=== PATIENT | male | born 1950 | race African-American/Black ===

== ENCOUNTER 2020-02-23 16:32 | Emergency (ER) | payer MEDICARE, OTHER, SELFPAY ==
[2020-02-23 16:33] VITALS: BP 157/101; PULSE 110; RESP 22; TEMP 37; O2SAT 98; BMI 31.1
--- NOTE | 2020-02-23 16:48 | ED.VISSUMM ---
- ER Visit Summary Date of Service: 02/23/20 Chief Complaint: Fatigue and weakness History of Present Illness: The patient is a 70 M who presents with fatigue and weakness that is been getting worse over the past week. Patient states he feels drained. Patient states this is generalized. Patient admits to subjective fevers and chills. Patient states this has been constant for the past week. Patient states nothing makes it worse and nothing makes it better. Patient does admit to some intermittent abdominal pain and diarrhea. Patient denies any urinary complaints. Patient denies any cough. Patient states he tried to get an appointment to see his primary care doctor for a possible Covid test but was referred to the emergency department. Physical Examination: Vital signs are stable. Patient is afebrile. Patient is in no acute distress. Oral mucosa is pink and moist. Oropharynx is clear. Neck is supple. Trachea is midline. There is no JVD or lymphadenopathy noted. Heart was regular rate and rhythm. Lungs are clear and equal bilaterally. Abdomen is soft. Bowel sounds are normal. There is no tenderness. There is no rebound or guarding noted. Skin is warm dry. Cranial nerves II through XII are intact. There are no focal motor or sensory deficits noted. Extremities are intact. There is no calf tenderness or edema. Test Results: Portable 1 view chest x-ray was obtained. On my interpretation, lung wheat showed questionable bibasilar infiltrates. There is normal cardiac silhouette. Bony thorax is normal. Radiologist also interpreted the x-rays and reported minor interstitial thickening in the right upper and left lower lobes with slightly increased density suspicious for mild changes of atypical viral pneumonia. CBC and basic metabolic profile were obtained and were essentially within normal limits. Creatinine was slightly elevated at 1.43. This was unchanged from 2015. Urinalysis was normal. Rapid antigen COVID-19 test was ordered and was negative. Patient was advised that this could be a false negative and a send out PCR COVID-19 test was ordered. Emergency Department Course and Treatment: Patient was given IV fluids. Patient was feeling better on reevaluation. Patient was instructed to follow-up with his primary care physician in 3 to 5 days. Patient was instructed to quarantine himself until he follows up with his primary care physician for his PCR COVID-19 results. Patient was instructed to take Tylenol or ibuprofen as needed for any aches or fevers. Patient understood and was agreeable with the plan. All questions were answered. Disposition: Discharge home Impression: 1. Viral syndrome This note was generated with [employer] dictation software. It may contain incorrect words, spelling, and punctuation that were not noted in review of the chart prior to signing ED Disposition - Plan for ED Patient: Disposition: Home or Assisted Living Diagnosis: Viral illness Instructions: ED Viral Syndrome (Adult), Pending Outpatient COVID Test, Preventing the Spread of Infection Understanding Isolation Procedures Referrals: Bryant Short Chi, MD [Primary Care Provider] - 3-5 Days
--- NOTE | 2020-02-23 16:51 | RAD_ITS ---
STUDY: X-RAY CHEST REASON FOR EXAM: Male, 70 years old. pt began with overall aches and fatigue 1 week ago. TECHNIQUE: AP portable COMPARISON: None. FINDINGS: There is minor interstitial thickening in the right upper and left lower lobes with slightly increased density suspicious for mild changes of atypical viral pneumonia.. There is no demonstrated pleural abnormality. Normal size heart. Normal mediastinum and edu. Normal visualized pulmonary arteries. Normal visualized aortic arch and descending thoracic aorta. Dorsal spine demonstrates degenerative change.. Normal visualized ribs, clavicles, and shoulders. There is no demonstrated abnormality of the visualized soft tissue structures of the upper abdomen. RAD/Chest 1 View (Portable) IMPRESSION: Findings suspicious for early changes of Covid 19 pneumonia however this may be better assessed with CAT scan if clinically warranted Electronically Signed: Harvey Burgess MD at 17:09 EST , Service support ,
[2020-02-23 17:45] LABS: Bacteria 0 SEEN /hpf (None Seen); Mucous, Urine 0 SEEN /hpf (<or=2+); Red Blood Cells-Urine 0 SEEN /hpf (0-5); Squamous Epithelial Cells - UA 0 SEEN /hpf (0-5); White Blood Cells 0 SEEN /hpf (0-5)
[2020-02-23 17:47] LABS: Absolute Lymphocyte Count 0.97 X10^3/uL (0.83-4.51); Absolute Neutrophil Count 8.1 X10^3/uL (2.0-7.7); Basophil# 0.01 X10^3/uL; Basophil% 0.1 % (0-1); Eosinophil# 0.01 X10^3/uL; Eosinophils% 0.1 % (0-5); Hematocrit 45.2 % (40-54); Hemoglobin 15.2 g/dL (13.0-16.5); Lymphocyte # 0.97 X10^3/ul (4.0); Lymphocyte % 10.3 % (19-41); Mean Corp Hgb Conc 33.6 g/dL (32-36); Mean Corpuscular Hgb 30.5 pg (27.0-32.0); Mean Corpuscular Volume 90.8 fL (80-94); Mean Platelet Vol. 10.3 fl (6.2-12.0); Monocyte# 0.35 X10^3/uL; Monocyte% 3.7 % (0-10); NRBC Flagged by Analyzer 0 % (0-5); Neutrophil # 8.07 X10^3/uL (2.7-7.7); Neutrophil % 85.3 % (47-70); Platelet Count 240 K/mm3 (150-450); RBC Distribution Width CV 12.1 % (11.6-14.6); RBC Distribution Width SD 40.2 fl (35.1-43.9); Red Blood Count 4.98 M/mm3 (4.6-6.2); White Blood Count 9.5 K/mm3 (4.4-11.0)
[2020-02-23] MEDS: 0.9% Normal Saline 1,000 ML 1000 ML IV (17:47)
[2020-02-23] MEDS: Acetaminophen 500 MG Tablet 1000 MG PO (17:47)
[2020-02-23 17:48] LABS: Color, Urine Yellow (Yellow); Glucose, Dipstick 100 mg/dl (Normal); Ketone-Dipstick 5 mg/dl (Negative); Leukocyte Esterase-Dipstick Negative /ul (Negative); Nitrite-Dipstick Negative (Negative); Occult Blood-Urine 10 /ul (Negative); Protein-Dipstick 100 mg/dl (Negative); Urine Bilirubin Dipstick Negative (Negative); Urine Clarity Clear (Clear); Urine Urobilinogen 4 mg/dl (Normal)
[2020-02-23 18:03] LABS: ALB/GLOB Ratio 0.5 RATIO (0.9-2.4); AST(SGOT) 27 U/L (15-37); Alanine Aminotransfer ALT/SGPT 31 U/L (16-61); Alkaline Phosphatase 125 U/L (45-117); Anion Gap 7 (5-15); BUN 14 mg/dL (7-18); BUN/Creat Ratio 9.8 RATIO (10-20); Calcium,Total 8.7 mg/dL (8.5-10.1); Chloride 102 mmol/L (98-107); Creatinine, Serum 1.43 mg/dL (0.70-1.30); EST Glomerular Filtration Rate 52 mL/min (>60); Est Glom Filt Rate - Afr Amer 63 mL/min (>60); Estimated Creatinine Clearance 54.27 ml/min; Globulin 5.5 g/dL (2.2-4.2); Glucose 142 mg/dL (74-106); Potassium 3.4 mmol/L (3.5-5.1); Protein, Total 8.5 g/dL (6.4-8.2); Sodium Level 137 mmol/L (136-145)
[2020-02-23 18:58] VITALS: BP 130/70; PULSE 67; RESP 18; O2SAT 99
== END 2020-02-23 18:59 | disposition home or self-care (01) ==
PROVIDERS: Emergency Provider Emergency Medicine; PCP Family Medicine Geriatric Medicine
DX: B34.9 Viral infection, unspecified (principal)
CPT/HCPCS: 71045; 80053; 81001; 85025; 87426; 87635; 99285; J7030; A4216; U0003

== ENCOUNTER → 2020-02-28 14:08 | Outpatient (CLI) | payer MEDICARE, OTHER, SELFPAY ==
[2020-02-23 16:33] VITALS: BMI 31.1
[2020-02-28 17:17] LABS: Absolute Lymphocyte Count 1.53 X10^3/uL (0.83-4.51); Absolute Neutrophil Count 5.4 X10^3/uL (2.0-7.7); Basophil# 0.04 X10^3/uL; Basophil% 0.5 % (0-1); Eosinophil# 0.15 X10^3/uL; Eosinophils% 1.9 % (0-5); Hematocrit 39.4 % (40-54); Hemoglobin 13.7 g/dL (13.0-16.5); Lymphocyte # 1.53 X10^3/ul (4.0); Lymphocyte % 19.9 % (19-41); Mean Corp Hgb Conc 34.8 g/dL (32-36); Mean Corpuscular Hgb 32.5 pg (27.0-32.0); Mean Corpuscular Volume 93.4 fL (80-94); Mean Platelet Vol. 10.4 fl (6.2-12.0); Monocyte# 0.52 X10^3/uL; Monocyte% 6.8 % (0-10); NRBC Flagged by Analyzer 0 % (0-5); Neutrophil # 5.42 X10^3/uL (2.7-7.7); Neutrophil % 70.4 % (47-70); Platelet Count 319 K/mm3 (150-450); RBC Distribution Width CV 12.6 % (11.6-14.6); RBC Distribution Width SD 41.7 fl (35.1-43.9); Red Blood Count 4.22 M/mm3 (4.6-6.2); White Blood Count 7.7 K/mm3 (4.4-11.0)
[2020-02-28 17:52] LABS: ALB/GLOB Ratio 0.5 RATIO (0.9-2.4); AST(SGOT) 37 U/L (15-37); Alanine Aminotransfer ALT/SGPT 45 U/L (16-61); Albumin, Serum 2.7 g/dL (3.2-5.0); Alkaline Phosphatase 112 U/L (45-117); Anion Gap 8 (5-15); BUN 15 mg/dL (7-18); BUN/Creat Ratio 10.6 RATIO (10-20); Calcium,Total 8.8 mg/dL (8.5-10.1); Chloride 105 mmol/L (98-107); Creatinine, Serum 1.41 mg/dL (0.70-1.30); EST Glomerular Filtration Rate 53 mL/min (>60); Est Glom Filt Rate - Afr Amer 64 mL/min (>60); Globulin 5.4 g/dL (2.2-4.2); Glucose 114 mg/dL (74-106); PSA,Total - Annual Screen 0.66 ng/mL (0.00-4.00); Potassium 3.3 mmol/L (3.5-5.1); Protein, Total 8.1 g/dL (6.4-8.2); Sodium Level 138 mmol/L (136-145); Thyroid Stim Hormone (TSH) 1.59 uIU/mL (0.358-3.74)
[2020-02-29 10:08] LABS: Hepatitis C Antibody Non-Reactive (Nonreactive)
== END ==
PROVIDERS: PCP Family Medicine Geriatric Medicine; Visit Provider Family Medicine Geriatric Medicine
DX: E11.9 Type 2 diabetes mellitus without complications (principal); E23.6 Other disorders of pituitary gland; I10 Essential (primary) hypertension; Z12.12 Encounter for screening for malignant neoplasm of rectum; Z13.89 Encounter for screening for other disorder; Z12.5 Encounter for screening for malignant neoplasm of prostate
CPT/HCPCS: 80053; 84153; 84403; 84443; 85025; 86803; G0103

== ENCOUNTER → 2020-03-07 08:51 | Outpatient (CLI) | payer MEDICARE, OTHER, SELFPAY ==
[2020-02-23 16:33] VITALS: BMI 31.1
--- NOTE | 2020-03-07 08:53 | AAVD_ITS ---
Reason For Study: AAA without rupture Aorta Measurements Aorta Doppler Measurements Proximal aorta measures1.36 x 1.34cm. in cross- Peak systolic flow velocities within the proximal sectional axis. aorta measure 100.8 cm/sec. Proximal aorta measures1.42cm. in longitudinal Peak systolic flow velocities within the mid aorta axis. measure 86.2 cm/sec. Mid aorta measures1.21 x 1.18cm. in cross- Peak systolic flow velocities within the distal sectional axis. aorta measure 88.0 cm/sec. Mid aorta measures1.21cm. in longitudinal axis. Distal aorta measures1.39 x 1.49cm. in cross- sectional axis. Distal aorta measures1.47cm. in longitudinal axis. Left Iliac Artery Left iliac artery measures 1.02 x 1.06 cm. in the cross-sectional axis. Left iliac artery measures 1.01 cm. in the longitudinal axis. Peak systolic velocity in the left iliac artery measures 67.9 cm/sec. Right Iliac Artery Right iliac artery measures 1.01 x 1.05 cm. in the cross-sectional axis. Right iliac artery measures .95 cm. in the longitudinal axis. Peak systolic velocity in the right iliac artery measures 71.6 cm/sec. Procedure Aorta IVC Iliac vasculature or bypass grafts [id number]. The exam was diagnostic. Exam performed in department. Interpretation Summary The dimensions of the intra-abdominal aorta appear normal, without evidence of aneurysmal dilatation. The iliac arteries also appear normal in size bilaterally. The intra-abdominal aorta and iliac arteries appear patent, demonstrating normal, pulsatile arterial flow and normal peak systolic velocities. Ordering Physician: Bryant Short Performed By: John Martino RVT
== END ==
PROVIDERS: PCP Family Medicine Geriatric Medicine; Referring Provider Family Medicine Geriatric Medicine; Visit Provider Family Medicine Geriatric Medicine
DX: I71.4 Abdominal aortic aneurysm, without rupture (principal)
CPT/HCPCS: 93978

== ENCOUNTER → 2020-03-08 08:52 | Outpatient (CLI) | payer MEDICARE, OTHER, SELFPAY ==
[2020-02-23 16:33] VITALS: BMI 31.1
[2020-03-08 12:32] LABS: Anion Gap 6 (5-15); BUN 12 mg/dL (7-18); BUN/Creat Ratio 10.5 RATIO (10-20); Calcium,Total 8.5 mg/dL (8.5-10.1); Chloride 108 mmol/L (98-107); Creatinine, Serum 1.14 mg/dL (0.70-1.30); EST Glomerular Filtration Rate 68 mL/min (>60); Est Glom Filt Rate - Afr Amer 82 mL/min (>60); Glucose 123 mg/dL (74-106); Potassium 3.8 mmol/L (3.5-5.1); Sodium Level 140 mmol/L (136-145)
== END ==
PROVIDERS: PCP Family Medicine Geriatric Medicine; Visit Provider Family Medicine Geriatric Medicine
DX: E87.6 Hypokalemia (principal)
CPT/HCPCS: 36415; 80048

== ENCOUNTER 2020-03-23 07:30 | Outpatient (RCR) | payer MEDICARE, OTHER, SELFPAY | END 2020-04-09 23:59 | LOC: DC 07:30 | PROVIDERS: PCP Family Medicine Geriatric Medicine; Visit Provider Family Medicine Geriatric Medicine | DX: Z71.3 Dietary counseling and surveillance (principal); E11.9 Type 2 diabetes mellitus without complications | CPT/HCPCS: 97802 ==

== ENCOUNTER 2020-03-23 10:30 | Outpatient (RCR) | payer MEDICARE, OTHER, SELFPAY | END 2020-04-09 23:59 | LOC: DC 10:30 | PROVIDERS: PCP Family Medicine Geriatric Medicine; Visit Provider Family Medicine Geriatric Medicine | DX: Z71.3 Dietary counseling and surveillance (principal); E11.9 Type 2 diabetes mellitus without complications | CPT/HCPCS: G0108 ==

== ENCOUNTER 2020-03-27 08:45 | Day surgery (SDC) | payer MEDICARE, OTHER, SELFPAY ==
[2020-03-27] VITALS (7 sets, daily range): BP systolic 109–145; BP diastolic 73–85; PULSE 71–80; RESP 16; TEMP 36–36.7; O2SAT 95–100; BMI 32.3
[2020-03-27] MEDS: Lactated Ringers 1,000 ML 100 ML IV (09:21)
--- NOTE | 2020-03-27 09:45 | COLBX_PTH ---
PATIENT: JEREMY QUINTERO LOC: [facility] U#:[id number] AGE/SX: 70/M ROOM: RE03/27/[address]: Dr. Scarlet Richards MD : 1950 BED: DIS: 03/27/2020 SPEC #: [id number] RECD: 03/27/20 11:22 STATUS: MAIRA ELY #: [id number] RUBIA: 03/27/20 09:[address]: Scarlet Richards DEPT: SURGICAL PATHOLOGY RECD BY: Jamia Staples ENTERED: 03/27/20 12:32 SP TYPE: COLON BX OTHR DR: Dr. Bryant Short MD Tissues: Cecum, NOS Procedures: Surgery Specimen Level IV HEADER OPERATION: Colonoscopy - open access (MAC) PRE-OP DIAGNOSIS: Screening TISSUE SUBMITTED: Cecal polyp biopsy MICROSCOPIC DIAGNOSIS Cecal polyp, biopsy: Fragments of tubular adenoma. SJ:nick 03/28/2020 MICROSCOPIC DESCRIPTION Slides are reviewed. GROSS DESCRIPTION Received in fixative is one container labeled with the patient's name and designated cecal polyp biopsy. The specimen consists of multiple irregular fragments of light garcia soft tissue that in aggregate measure 1 x 0.3 x 0.1 cm. The specimen is totally submitted in one cassette. / SJ:nick 03/27/20 TC:1 CPT: 18332
--- NOTE | 2020-03-27 09:49 | H&P.OPEN ---
History of Present Illness Date of Admission: 03/27/20 The patient is a 70 year old M presents for screening colonoscopy. Patient states he has bowel movements daily denies any blood, denies any chronic abdominal pain/nausea/vomiting/reflux. Patient has never had a previous colonoscopy. Patient denies any family history of colon cancer Past Medical/Surgical History - Planned Operation Planned Operative Procedure/s: cscope open access Date of Operative Procedure: 03/27/20 Permit Signed: No S.O.S: No Is This Patient Having a Total Joint: No - Previous Hospitalizations/Surgeries HX Hospitalizations: No HX of Surgeries: n/a Any Problems With Anesthesia: No You/Your Family Experience Fever (Hyperthermia) With Anes: No Cholinesterase deficiency: No - Cardiovascular Hx Chest Pain within Last 2 months: No Hx of Irregular Heartbeat and/or Afib: No Hx Heart Attack: No Hx Congestive Heart Failure: No Hx Rheumatic Fever: No Hx Hypertension: No Hx Internal Defibrillator: No Hx Pacemaker: No Hx Cardiac Catheterization: No Hx Cardiac Surgery/Stents/Etc.: No Hx Stress Test: No HX Edema: No Hx Pain in Legs when Walking/Leg Cramps: No - Respiratory Chronic Cough: No HX of Shortness of Breath: No Hoarseness: No Hx Chronic Obstructive Pulmonary Disease (COPD): No Hx Asthma: No Hx Emphysema: No Hx Sleep Apnea: No Hx Oxygen Use at Home: No Hx Respiratory Tract Infection/Cold (presently): No Do You Snore Loudly (louder than talking or can be heard): Yes Do You Often Feel Tired/ Fatigued/ Sleepy Dring Daytime?: No Has Anyone Observed You Stop Breathing During Sleep?: No Result (for STOP score): Negative Hx Smoking: No Smoking Status: Never smoker - Gastrointestinal Hx Gastroesophageal Reflux: No Hx Gastrointestinal Disorders: No Hx Gastrointestinal Bleed: No Hx Ulcer: No Hx Hiatal Hernia: No Difficulty Chewing/Swallowing: No Recent Onset of Swallowing Problems: No Special diet followed at home: No Hx Unplanned Weight Loss of 20#: No HX Unplanned Weight Gain of 20#: No - Neurological Hx Seizures: No HX Syncope/Blackout Spells/Unconsciousness: No Hx CVA/Stroke: No Hx Transient Ischemic Attacks (TIA): No Hx Multiple Sclerosis: No Hx Parkinson's Disease: No Hx Head/Neck Injury: No Hx Headaches: No Hx Back Injury/Pain: No Recent Onset of Speech Difficulty: No Restless Legs: No Does patient have nerve stimulator: No Patient instructed to have device shut off: No Rep notified?: No - Blood Disorder Hx Leukemia: No Bleeding Tendencies: No Hx Deep Vein Thrombosis: No Hx High Cholesterol: Yes - on med Blood Transmitted Disease: No Hx Hepatitis: No Hx Cirrhosis: No Hx Anemia: No Hx Blood Disorders: No - Genitourinary Hx Renal Disease: No - Musculoskeletal Hx Arthritis: No Hx Rheumatoid Arthritis: No Hx Gout: No Recent Onset of an Orthopedic Problem: No - Endocrine Hx Diabetes: Yes Insulin: No Thyroid Disease: No Hx Steroid Therapy: No - Psycho/Social Hx Substance Use: No Hx Alcohol Use: No Hx Anxiety: No Hx Depression: No Mental Illness: No Hx Dementia: No - Miscellaneous Hx Cancer: No Recent Exposure to Contagious Disease: No Active MRSA: No Hx of C-Diff: No Any Loose Teeth: No Allergies No Known Allergies Allergy (Verified 03/27/20 08:54) - Discharge Is Pt Admitted From a Long Term, or a Residential: No After D/C, Where Do you Plan to Go: Return Home - From the PAT History Number of Risk Factors: 1 - Physical Exam Vitals/I&O's: Vital Signs Temp Pulse Resp BP Pulse Ox 96.8 F L 80 16 145/76 H 96 03/27/20 09:04 03/27/20 09:04 03/27/20 09:04 03/27/20 09:04 03/27/20 09:04 Oxygen Delivery Method Room Air Weight: 225 lb 4.999 oz Body Mass Index (BMI) 32.3 General: Alert, Oriented x3, Cooperative, No apparent distress HEENT: Atraumatic Lungs: Normal air movement Cardiovascular: Regular rate Abdomen: Soft, Non Tender, Non-Distended Extremities: No clubbing, No cyanosis, No edema Microbiology Past 72 Hours 03/24/20 09:30 Interface Orders SARS-CoV-2 Antigen (Rapid) - Final Current Medications Lactated Ringer's () 1,000 mls @ 100 mls/hr IV .Q10H MAGDA Last Admin: 03/27/20 09:21 Dose: 100 mls/hr Documented by: Assessment/Plan 70 y/o male for screening for colon cancer Procedure Criteria Procedure Type: Elective COVID Risk Discussion: The surgeon/proceduralist and patient have discussed in detail the risk of exposure to and/or potential harm posed by the COVID-19 virus with having a surgery/procedure at this time versus the risk of delaying the surgery/procedure. It is not possible to know either the risk of delaying the surgery or procedure or chance of getting an infection with perfect accuracy, but a joint decision was made between the patient and the surgeon/proceduralist to proceed at this time with the scheduled surgery/procedure as indicated on the consent form. Surgery Risks - Colonoscopy I discussed with the patient the risks of the procedure: Yes Risks Include but are not Limited To: Risks include but are not limited to: Bleeding, perforation requiring further surgery, inability to complete colonoscopy requiring barium enema.
[2020-03-27 10:31] LABS: Bedside Glucose 180 mg/dL (70-110)
--- NOTE | 2020-03-27 10:31 | OP.COLON_ITS ---
Patient Name: Chon Otero Procedure Date: 03/27/2020 9:56 AM Date of : 1950 Age: 70 Procedure: Colonoscopy Indications: Screening for colorectal malignant neoplasm Providers: Scarlet Richards MD Referring MD: Bryant Short MD Medicines: Monitored Anesthesia Care Patient Profile: This is a 70 year old male. Last Colonoscopy: none. The patient's first colonoscopy is today. Complications: No immediate complications. Procedure: Pre-Anesthesia Assessment: - Prior to the procedure, a History and Physical was performed, and patient medications and allergies were reviewed. The patient's tolerance of previous anesthesia was also reviewed. The risks and benefits of the procedure and the sedation options and risks were discussed with the patient. All questions were answered, and informed consent was obtained. Prior Anticoagulants: The patient has taken no previous anticoagulant or antiplatelet agents. ASA Grade Assessment: Per anesthesia. After reviewing the risks and benefits, the patient was deemed in satisfactory condition to undergo the procedure. After I obtained informed consent, the scope was passed under direct vision. Throughout the procedure, the patient's blood pressure, pulse, and oxygen saturations were monitored continuously. The colonoscope was introduced through the anus and advanced to the cecum, identified by the appendiceal orifice, ileocecal valve and palpation. The colonoscopy was performed without difficulty. The patient tolerated the procedure well. The quality of the bowel preparation was good. Scope In: 10:06:40 AM Scope Withdrawal Time 0 hours 13 minutes 7 seconds Scope Out: 10:25:14 AM Total Procedure Duration Time 0 hours 18 minutes 34 seconds Findings: Hemorrhoids were found on perianal exam. A few small-mouthed diverticula were found in the descending colon, transverse colon and ascending colon. A less than 5 mm polyp was found in the cecum. The polyp was sessile. The polyp was removed with a cold biopsy forceps. Resection and retrieval were complete. Non-bleeding internal hemorrhoids were found. The hemorrhoids were Grade I (internal hemorrhoids that do not prolapse). Impression: - Hemorrhoids found on perianal exam. - Diverticulosis in the descending colon, in the transverse colon and in the ascending colon. - One less than 5 mm polyp in the cecum, removed with a cold biopsy forceps. Resected and retrieved. - Non-bleeding internal hemorrhoids. Recommendation: - Repeat colonoscopy in 5 years for surveillance based on pathology results. - Discharge patient to home. - High fiber diet. - Continue present medications. - Await pathology results. Procedure Code(s): --- Professional --- 29901, PT, Colonoscopy, flexible; with biopsy, single or multiple Diagnosis Code(s): --- Professional --- Z12.11, Encounter for screening for malignant neoplasm of colon K64.0, First degree hemorrhoids D12.0, Benign neoplasm of cecum K57.30, Diverticulosis of large intestine without perforation or abscess without bleeding CPT copyright 2017 [employer]. All rights reserved. The codes documented in this report are preliminary and upon funeral car driver review may be revised to meet current compliance requirements. MD Scarlet Gutiérrez MD 03/27/2020 10:31:01 AM This report has been signed electronically. Number of Addenda: 0 Note Initiated On: 03/27/2020 9:56 AM
--- NOTE | 2020-03-27 10:31 | OP.CCLET_ITS ---
03/27/2020 Bryant Short MD [address] [place] [address] Re : Colonoscopy procedure for Chon Otero Dear Dr. Short This procedure was performed on Friday, March 27, 2020. My impressions and recommendations are as follows: Impressions : - Hemorrhoids found on perianal exam. - Diverticulosis in the descending colon, in the transverse colon and in the ascending colon. - One less than 5 mm polyp in the cecum, removed with a cold biopsy forceps. Resected and retrieved. - Non-bleeding internal hemorrhoids. Recommendations : - Repeat colonoscopy in 5 years for surveillance based on pathology results. - Discharge patient to home. - High fiber diet. - Continue present medications. - Await pathology results. My findings are described in the full procedure note, which is enclosed. If I can be of further assistance, please feel free to contact me at Doctor phone number(s): , Work: . Sincerely, MD Scarlet Gutiérrez MD 03/27/2020 10:31:01 AM This report has been signed electronically.
== END 2020-03-27 11:08 | disposition home or self-care (01) ==
LOC: EN 08:46 → AC 08:46
PROVIDERS: PCP Family Medicine Geriatric Medicine; Referring Provider Family Medicine Geriatric Medicine; Visit Provider Surgery
PROC: 0DJD8ZZ Inspection of Lower Intestinal Tract, Via Natural or Artificial Opening Endoscopic (ICD-10-PCS; CPT 45378; principal; 2020-03-27 09:40)
DX: Z12.11 Encounter for screening for malignant neoplasm of colon (principal); Z20.828 Contact with and (suspected) exposure to other viral communicable diseases; E78.00 Pure hypercholesterolemia, unspecified; Z79.899 Other long term (current) drug therapy; E11.9 Type 2 diabetes mellitus without complications; Z79.84 Long term (current) use of oral hypoglycemic drugs; D12.0 Benign neoplasm of cecum; K64.0 First degree hemorrhoids; K57.30 Diverticulosis of large intestine without perforation or abscess without bleeding
CPT/HCPCS: 45380; 82962; 87426; 88305; C9803; J7120; J2405

== ENCOUNTER 2020-05-02 13:00 | Outpatient (RCR) | payer MEDICARE, OTHER, SELFPAY ==
[2020-03-27 09:04] VITALS: BMI 32.3
== END 2020-05-02 23:59 | disposition home or self-care (01) ==
LOC: DC 13:00
PROVIDERS: PCP Family Medicine Geriatric Medicine; Visit Provider Family Medicine Geriatric Medicine
DX: Z71.3 Dietary counseling and surveillance (principal); E11.9 Type 2 diabetes mellitus without complications
CPT/HCPCS: 97803; G0108

== ENCOUNTER → 2020-06-05 11:56 | Outpatient (CLI) | payer MEDICARE, OTHER, SELFPAY ==
[2020-03-27 09:04] VITALS: BMI 32.3
[2020-06-05 12:32] LABS: Absolute Lymphocyte Count 1.83 X10^3/uL (0.83-4.51); Absolute Neutrophil Count 6.5 X10^3/uL (2.0-7.7); Basophil# 0.02 X10^3/uL; Basophil% 0.2 % (0-1); Eosinophil# 0.07 X10^3/uL; Eosinophils% 0.8 % (0-5); Hematocrit 44.4 % (40-54); Hemoglobin 14.8 g/dL (13.0-16.5); Lymphocyte # 1.83 X10^3/ul (4.0); Lymphocyte % 20.4 % (19-41); Mean Corp Hgb Conc 33.3 g/dL (32-36); Mean Corpuscular Hgb 30.5 pg (27.0-32.0); Mean Corpuscular Volume 91.5 fL (80-94); Mean Platelet Vol. 10.4 fl (6.2-12.0); Monocyte# 0.49 X10^3/uL; Monocyte% 5.5 % (0-10); NRBC Flagged by Analyzer 0 % (0-5); Neutrophil # 6.52 X10^3/uL (2.7-7.7); Neutrophil % 72.8 % (47-70); Platelet Count 207 K/mm3 (150-450); RBC Distribution Width CV 12.6 % (11.6-14.6); RBC Distribution Width SD 42.3 fl (35.1-43.9); Red Blood Count 4.85 M/mm3 (4.6-6.2)
[2020-06-05 12:56] LABS: Vitamin D,25 Hydroxy 17.8 ng/mL
[2020-06-05 13:06] LABS: ALB/GLOB Ratio 0.8 RATIO (0.9-2.4); AST(SGOT) 13 U/L (15-37); Alanine Aminotransfer ALT/SGPT 23 U/L (16-61); Albumin, Serum 3.5 g/dL (3.2-5.0); Alkaline Phosphatase 106 U/L (45-117); Anion Gap 5 (5-15); BUN 12 mg/dL (7-18); BUN/Creat Ratio 8.5 RATIO (10-20); Calcium,Total 8.9 mg/dL (8.5-10.1); Chloride 108 mmol/L (98-107); Creatinine, Serum 1.42 mg/dL (0.70-1.30); EST Glomerular Filtration Rate 53 mL/min (>60); Est Glom Filt Rate - Afr Amer 64 mL/min (>60); Globulin 4.4 g/dL (2.2-4.2); Glucose 193 mg/dL (74-106); Potassium 3.8 mmol/L (3.5-5.1); Protein, Total 7.9 g/dL (6.4-8.2); Sodium Level 139 mmol/L (136-145)
== END ==
PROVIDERS: PCP Family Medicine Geriatric Medicine; Visit Provider Family Medicine Geriatric Medicine
DX: E11.9 Type 2 diabetes mellitus without complications (principal); E23.6 Other disorders of pituitary gland; E55.9 Vitamin D deficiency, unspecified; I10 Essential (primary) hypertension
CPT/HCPCS: 36415; 80053; 82306; 84403; 84443; 85025

== ENCOUNTER → 2020-09-05 09:27 | Outpatient (CLI) | payer MEDICARE, OTHER, SELFPAY ==
[2020-03-27 09:04] VITALS: BMI 32.3
[2020-09-05 12:33] LABS: Absolute Lymphocyte Count 2.01 X10^3/uL (0.83-4.51); Absolute Neutrophil Count 5.4 X10^3/uL (2.0-7.7); Basophil# 0.02 X10^3/uL; Basophil% 0.2 % (0-1); Eosinophils% 1.2 % (0-5); Hematocrit 41.4 % (40-54); Hemoglobin 13.8 g/dL (13.0-16.5); Lymphocyte # 2.01 X10^3/ul (0.83-4.51); Lymphocyte % 24.8 % (19-41); Mean Corp Hgb Conc 33.3 g/dL (32-36); Mean Corpuscular Hgb 30.5 pg (27.0-32.0); Mean Corpuscular Volume 91.4 fL (80-94); Mean Platelet Vol. 10.6 fl (6.2-12.0); Monocyte# 0.49 X10^3/uL; Monocyte% 6.1 % (0-10); NRBC Flagged by Analyzer 0 % (0-5); Neutrophil # 5.44 X10^3/uL (2.7-7.7); Neutrophil % 67.3 % (47-70); Platelet Count 223 K/mm3 (150-450); RBC Distribution Width CV 12.5 % (11.6-14.6); RBC Distribution Width SD 41.8 fl (35.1-43.9); Red Blood Count 4.53 M/mm3 (4.6-6.2); White Blood Count 8.1 K/mm3 (4.4-11.0)
[2020-09-05 12:49] LABS: Vitamin D,25 Hydroxy 23.1 ng/mL
[2020-09-05 12:54] LABS: ALB/GLOB Ratio 0.9 RATIO (0.9-2.4); AST(SGOT) 16 U/L (15-37); Alanine Aminotransfer ALT/SGPT 26 U/L (16-61); Albumin, Serum 3.5 g/dL (3.2-5.0); Alkaline Phosphatase 109 U/L (45-117); Anion Gap 7 (5-15); BUN 15 mg/dL (7-18); BUN/Creat Ratio 10.1 RATIO (10-20); Calcium,Total 8.7 mg/dL (8.5-10.1); Chloride 107 mmol/L (98-107); Creatinine, Serum 1.48 mg/dL (0.70-1.30); EST Glomerular Filtration Rate 50 mL/min (>60); Est Glom Filt Rate - Afr Amer 61 mL/min (>60); Globulin 4.1 g/dL (2.2-4.2); Glucose 135 mg/dL (74-106); Potassium 3.8 mmol/L (3.5-5.1); Protein, Total 7.6 g/dL (6.4-8.2); Sodium Level 140 mmol/L (136-145); Thyroid Stim Hormone (TSH) 1.73 uIU/mL (0.358-3.74)
== END ==
PROVIDERS: PCP Family Medicine Geriatric Medicine; Visit Provider Family Medicine Geriatric Medicine
DX: E11.9 Type 2 diabetes mellitus without complications (principal); E23.6 Other disorders of pituitary gland; E55.9 Vitamin D deficiency, unspecified; I10 Essential (primary) hypertension
CPT/HCPCS: 36415; 80053; 82306; 84403; 84443; 85025

== ENCOUNTER → 2020-10-30 11:52 | Outpatient (CLI) | payer MEDICARE, OTHER, SELFPAY ==
[2020-10-30 12:50] LABS: Anion Gap 7 (5-15); BUN 21 mg/dL (7-18); BUN/Creat Ratio 11.2 RATIO (10-20); Calcium,Total 8.6 mg/dL (8.5-10.1); Chloride 102 mmol/L (98-107); Creatinine, Serum 1.87 mg/dL (0.70-1.30); EST Glomerular Filtration Rate 38 mL/min (>60); Est Glom Filt Rate - Afr Amer 46 mL/min (>60); Glucose 270 mg/dL (74-106); Potassium 4.1 mmol/L (3.5-5.1); Sodium Level 135 mmol/L (136-145)
== END ==
PROVIDERS: PCP Family Medicine Geriatric Medicine; Visit Provider Family Medicine Geriatric Medicine
DX: I10 Essential (primary) hypertension (principal)
CPT/HCPCS: 36415; 80048

== ENCOUNTER → 2020-10-31 16:56 | Outpatient (CLI) | payer MEDICARE, OTHER, SELFPAY ==
[2020-10-31 17:38] LABS: Anion Gap 5 (5-15); BUN 17 mg/dL (7-18); BUN/Creat Ratio 10.2 RATIO (10-20); Calcium,Total 8.8 mg/dL (8.5-10.1); Chloride 107 mmol/L (98-107); Creatinine, Serum 1.67 mg/dL (0.70-1.30); EST Glomerular Filtration Rate 44 mL/min (>60); Est Glom Filt Rate - Afr Amer 53 mL/min (>60); Glucose 206 mg/dL (74-106); Sodium Level 138 mmol/L (136-145)
== END ==
PROVIDERS: PCP Family Medicine Geriatric Medicine; Visit Provider Family Medicine Geriatric Medicine
DX: I10 Essential (primary) hypertension (principal)
CPT/HCPCS: 36415; 80048

== ENCOUNTER → 2020-11-15 08:55 | Outpatient (CLI) | payer MEDICARE, OTHER, SELFPAY ==
[2020-11-15 11:10] LABS: Anion Gap 4 (5-15); BUN 12 mg/dL (7-18); BUN/Creat Ratio 8.7 RATIO (10-20); Calcium,Total 8.8 mg/dL (8.5-10.1); Chloride 108 mmol/L (98-107); Creatinine, Serum 1.38 mg/dL (0.70-1.30); EST Glomerular Filtration Rate 54 mL/min (>60); Est Glom Filt Rate - Afr Amer 66 mL/min (>60); Glucose 140 mg/dL (74-106); Potassium 3.8 mmol/L (3.5-5.1); Sodium Level 139 mmol/L (136-145)
== END ==
PROVIDERS: PCP Family Medicine Geriatric Medicine; Referring Provider Family Medicine Geriatric Medicine; Visit Provider Family Medicine Geriatric Medicine
DX: I10 Essential (primary) hypertension (principal)
CPT/HCPCS: 36415; 80048

== ENCOUNTER → 2020-12-11 10:26 | Outpatient (CLI) | payer MEDICARE, OTHER, SELFPAY ==
[2020-12-11 12:09] LABS: Absolute Lymphocyte Count 1.77 X10^3/uL (0.83-4.51); Absolute Neutrophil Count 5.6 X10^3/uL (2.0-7.7); Basophil# 0.03 X10^3/uL; Basophil% 0.4 % (0-1); Eosinophil# 0.12 X10^3/uL; Eosinophils% 1.5 % (0-5); Hematocrit 41.9 % (40-54); Hemoglobin 14.3 g/dL (13.0-16.5); Lymphocyte # 1.77 X10^3/ul (0.83-4.51); Mean Corp Hgb Conc 34.1 g/dL (32-36); Mean Corpuscular Hgb 31.5 pg (27.0-32.0); Mean Corpuscular Volume 92.3 fL (80-94); Mean Platelet Vol. 11.2 fl (6.2-12.0); Monocyte# 0.46 X10^3/uL; Monocyte% 5.7 % (0-10); NRBC Flagged by Analyzer 0 % (0-5); Neutrophil # 5.63 X10^3/uL (2.7-7.7); Neutrophil % 70.2 % (47-70); Platelet Count 214 K/mm3 (150-450); RBC Distribution Width CV 12.5 % (11.6-14.6); RBC Distribution Width SD 42.8 fl (35.1-43.9); Red Blood Count 4.54 M/mm3 (4.6-6.2)
[2020-12-11 12:20] LABS: Vitamin D,25 Hydroxy 20.1 ng/mL
[2020-12-11 12:25] LABS: ALB/GLOB Ratio 0.7 RATIO (0.9-2.4); AST(SGOT) 19 U/L (15-37); Alanine Aminotransfer ALT/SGPT 28 U/L (16-61); Albumin, Serum 3.3 g/dL (3.2-5.0); Alkaline Phosphatase 108 U/L (45-117); Anion Gap 9 (5-15); BUN 14 mg/dL (7-18); BUN/Creat Ratio 9.7 RATIO (10-20); Calcium,Total 8.4 mg/dL (8.5-10.1); Chloride 106 mmol/L (98-107); Creatinine, Serum 1.44 mg/dL (0.70-1.30); EST Glomerular Filtration Rate 52 mL/min (>60); Est Glom Filt Rate - Afr Amer 63 mL/min (>60); Globulin 4.6 g/dL (2.2-4.2); Glucose 193 mg/dL (74-106); Potassium 3.7 mmol/L (3.5-5.1); Protein, Total 7.9 g/dL (6.4-8.2); Sodium Level 138 mmol/L (136-145); Thyroid Stim Hormone (TSH) 1.74 uIU/mL (0.358-3.74)
== END ==
PROVIDERS: PCP Family Medicine Geriatric Medicine; Visit Provider Family Medicine Geriatric Medicine
DX: E11.9 Type 2 diabetes mellitus without complications (principal); E23.6 Other disorders of pituitary gland; E55.9 Vitamin D deficiency, unspecified; I10 Essential (primary) hypertension
CPT/HCPCS: 36415; 80053; 82306; 84403; 84443; 85025

== ENCOUNTER 2021-03-19 09:32 | Outpatient (CLI) | payer MEDICARE, OTHER, SELFPAY ==
[2021-03-19 11:42] LABS: Absolute Lymphocyte Count 1.53 X10^3/uL (0.83-4.51); Absolute Neutrophil Count 5.6 X10^3/uL (2.0-7.7); Basophil# 0.03 X10^3/uL; Basophil% 0.4 % (0-1); Eosinophil# 0.09 X10^3/uL; Eosinophils% 1.2 % (0-5); Hematocrit 43.7 % (40-54); Hemoglobin 14.4 g/dL (13.0-16.5); Lymphocyte # 1.53 X10^3/ul (0.83-4.51); Lymphocyte % 19.6 % (19-41); Mean Corpuscular Hgb 30.5 pg (27.0-32.0); Mean Corpuscular Volume 92.6 fL (80-94); Monocyte# 0.49 X10^3/uL; Monocyte% 6.3 % (0-10); NRBC Flagged by Analyzer 0 % (0-5); Neutrophil # 5.62 X10^3/uL (2.7-7.7); Neutrophil % 72.1 % (47-70); Platelet Count 219 K/mm3 (150-450); RBC Distribution Width CV 12.6 % (11.6-14.6); Red Blood Count 4.72 M/mm3 (4.6-6.2); White Blood Count 7.8 K/mm3 (4.4-11.0)
[2021-03-19 12:16] LABS: ALB/GLOB Ratio 0.7 RATIO (0.9-2.4); AST(SGOT) 19 U/L (15-37); Alanine Aminotransfer ALT/SGPT 32 U/L (16-61); Albumin, Serum 3.2 g/dL (3.2-5.0); Alkaline Phosphatase 95 U/L (45-117); Anion Gap 8 (5-15); BUN 11 mg/dL (7-18); BUN/Creat Ratio 7.4 RATIO (10-20); Calcium,Total 8.8 mg/dL (8.5-10.1); Chloride 105 mmol/L (98-107); Creatinine, Serum 1.49 mg/dL (0.70-1.30); EST Glomerular Filtration Rate 50 mL/min (>60); Est Glom Filt Rate - Afr Amer 60 mL/min (>60); Globulin 4.6 g/dL (2.2-4.2); Glucose 191 mg/dL (74-106); PSA,Total - Annual Screen 0.72 ng/mL (0.00-4.00); Potassium 3.8 mmol/L (3.5-5.1); Protein, Total 7.8 g/dL (6.4-8.2); Sodium Level 139 mmol/L (136-145); Thyroid Stim Hormone (TSH) 1.86 uIU/mL (0.358-3.74)
[2021-03-19 13:14] LABS: Vitamin D,25 Hydroxy 22.3 ng/mL
== END 2021-03-19 23:59 | disposition short-term general hospital (02) ==
LOC: POLAB3 09:33
PROVIDERS: PCP Family Medicine Geriatric Medicine; Visit Provider Family Medicine Geriatric Medicine
DX: E11.9 Type 2 diabetes mellitus without complications (principal); E23.6 Other disorders of pituitary gland; E55.9 Vitamin D deficiency, unspecified; I10 Essential (primary) hypertension; Z12.5 Encounter for screening for malignant neoplasm of prostate
CPT/HCPCS: 36415; 80053; 82306; 84153; 84403; 84443; 85025; G0103

== ENCOUNTER 2021-04-25 11:11 | Outpatient (CLI) | payer MEDICARE, OTHER, SELFPAY ==
[2021-04-25 12:30] LABS: Protein, Urine (Random) 20.9 mg/dL (<11.9); Protein:Creat Ratio 120 mg/g CRE (0-200)
== END 2021-04-25 23:59 | disposition home or self-care (01) ==
LOC: POLAB3 11:13 → LABSPEC 11:15
PROVIDERS: PCP Family Medicine Geriatric Medicine; Visit Provider Internal Medicine Nephrology
DX: E11.22 Type 2 diabetes mellitus with diabetic chronic kidney disease (principal); N18.9 Chronic kidney disease, unspecified
CPT/HCPCS: 82570; 84156

== ENCOUNTER 2021-06-18 11:23 | Outpatient (CLI) | payer MEDICARE, OTHER, SELFPAY ==
[2021-06-18 12:23] LABS: Absolute Lymphocyte Count 1.79 X10^3/uL (0.83-4.51); Absolute Neutrophil Count 4.4 X10^3/uL (2.0-7.7); Basophil# 0.01 X10^3/uL; Basophil% 0.1 % (0-1); Eosinophil# 0.09 X10^3/uL; Eosinophils% 1.3 % (0-5); Hematocrit 45.7 % (40-54); Hemoglobin 15.4 g/dL (13.0-16.5); Lymphocyte # 1.79 X10^3/ul (0.83-4.51); Lymphocyte % 26.8 % (19-41); Mean Corp Hgb Conc 33.7 g/dL (32-36); Mean Platelet Vol. 11.2 fl (6.2-12.0); Monocyte# 0.41 X10^3/uL; Monocyte% 6.1 % (0-10); NRBC Flagged by Analyzer 0 % (0-5); Neutrophil # 4.36 X10^3/uL (2.7-7.7); Neutrophil % 65.4 % (47-70); Platelet Count 185 K/mm3 (150-450); RBC Distribution Width CV 12.2 % (11.6-14.6); RBC Distribution Width SD 41.3 fl (35.1-43.9); Red Blood Count 4.97 M/mm3 (4.6-6.2); White Blood Count 6.7 K/mm3 (4.4-11.0)
[2021-06-18 12:36] LABS: Vitamin D,25 Hydroxy 21.3 ng/mL
[2021-06-18 13:05] LABS: ALB/GLOB Ratio 0.8 RATIO (0.9-2.4); AST(SGOT) 16 U/L (15-37); Alanine Aminotransfer ALT/SGPT 28 U/L (16-61); Albumin, Serum 3.4 g/dL (3.2-5.0); Alkaline Phosphatase 108 U/L (45-117); Anion Gap 5 (5-15); BUN 13 mg/dL (7-18); BUN/Creat Ratio 9.6 RATIO (10-20); Calcium,Total 8.7 mg/dL (8.5-10.1); Chloride 107 mmol/L (98-107); Creatinine, Serum 1.35 mg/dL (0.70-1.30); EST Glomerular Filtration Rate 56 mL/min (>60); Est Glom Filt Rate - Afr Amer 67 mL/min (>60); Globulin 4.3 g/dL (2.2-4.2); Glucose 136 mg/dL (74-106); Potassium 4.1 mmol/L (3.5-5.1); Protein, Total 7.7 g/dL (6.4-8.2); Sodium Level 138 mmol/L (136-145); Thyroid Stim Hormone (TSH) 1.28 uIU/mL (0.358-3.74)
== END 2021-06-18 23:59 | disposition home or self-care (01) ==
LOC: POLAB3 11:26
PROVIDERS: PCP Family Medicine Geriatric Medicine; Visit Provider Family Medicine Geriatric Medicine
DX: E11.9 Type 2 diabetes mellitus without complications (principal); E23.6 Other disorders of pituitary gland; E55.9 Vitamin D deficiency, unspecified; I10 Essential (primary) hypertension
CPT/HCPCS: 36415; 80053; 82306; 84403; 84443; 85025

== ENCOUNTER → 2021-11-06 | Outpatient (CLI) | payer MEDICARE, SELFPAY ==
[2021-11-06 12:03] LABS: Absolute Lymphocyte Count 1.87 X10^3/uL (0.83-4.51); Absolute Neutrophil Count 5.4 X10^3/uL (2.0-7.7); Basophil# 0.02 X10^3/uL; Basophil% 0.3 % (0-1); Eosinophil# 0.12 X10^3/uL; Eosinophils% 1.5 % (0-5); Hematocrit 45.3 % (40-54); Hemoglobin 15.1 g/dL (13.0-16.5); Lymphocyte # 1.87 X10^3/ul (0.83-4.51); Mean Corp Hgb Conc 33.3 g/dL (32-36); Mean Corpuscular Hgb 31.1 pg (27.0-32.0); Mean Corpuscular Volume 93.4 fL (80-94); Mean Platelet Vol. 11.2 fl (6.2-12.0); Monocyte# 0.34 X10^3/uL; Monocyte% 4.4 % (0-10); NRBC Flagged by Analyzer 0 % (0-5); Neutrophil # 5.41 X10^3/uL (2.7-7.7); Neutrophil % 69.5 % (47-70); Platelet Count 203 K/mm3 (150-450); RBC Distribution Width CV 12.6 % (11.6-14.6); Red Blood Count 4.85 M/mm3 (4.6-6.2); White Blood Count 7.8 K/mm3 (4.4-11.0)
[2021-11-06 12:19] LABS: Vitamin D,25 Hydroxy 26.5 ng/mL
[2021-11-06 12:23] LABS: ALB/GLOB Ratio 0.7 RATIO (0.9-2.4); AST(SGOT) 21 U/L (15-37); Alanine Aminotransfer ALT/SGPT 32 U/L (16-61); Albumin, Serum 3.3 g/dL (3.2-5.0); Alkaline Phosphatase 111 U/L (45-117); Anion Gap 9 (5-15); BUN 12 mg/dL (7-18); BUN/Creat Ratio 8.2 RATIO (10-20); Calcium,Total 8.2 mg/dL (8.5-10.1); Chloride 105 mmol/L (98-107); Creatinine, Serum 1.46 mg/dL (0.70-1.30); EST Glomerular Filtration Rate 51 mL/min (>60); Est Glom Filt Rate - Afr Amer 61 mL/min (>60); Globulin 4.5 g/dL (2.2-4.2); Glucose 220 mg/dL (74-106); Potassium 3.4 mmol/L (3.5-5.1); Protein, Total 7.8 g/dL (6.4-8.2); Sodium Level 141 mmol/L (136-145); Thyroid Stim Hormone (TSH) 1.26 uIU/mL (0.358-3.74)
== END | disposition home or self-care (01) ==
PROVIDERS: PCP Family Medicine Geriatric Medicine; Visit Provider Family Medicine Geriatric Medicine
DX: E11.9 Type 2 diabetes mellitus without complications (principal); E23.6 Other disorders of pituitary gland; E55.9 Vitamin D deficiency, unspecified; I10 Essential (primary) hypertension
CPT/HCPCS: 36415; 80053; 82306; 84403; 84443; 85025

== ENCOUNTER → 2022-02-05 | Outpatient (CLI) | payer MEDICARE, OTHER, SELFPAY ==
[2022-02-05 13:17] LABS: Absolute Lymphocyte Count 1.82 X10^3/uL (0.83-4.51); Absolute Neutrophil Count 6.1 X10^3/uL (2.0-7.7); Basophil# 0.02 X10^3/uL; Basophil% 0.2 % (0-1); Eosinophil# 0.07 X10^3/uL; Eosinophils% 0.8 % (0-5); Hematocrit 47.9 % (40-54); Hemoglobin 15.7 g/dL (13.0-16.5); Lymphocyte # 1.82 X10^3/ul (0.83-4.51); Lymphocyte % 21.8 % (19-41); Mean Corp Hgb Conc 32.8 g/dL (32-36); Mean Corpuscular Volume 94.5 fL (80-94); Mean Platelet Vol. 11.1 fl (6.2-12.0); Monocyte# 0.34 X10^3/uL; Monocyte% 4.1 % (0-10); NRBC Flagged by Analyzer 0 % (0-5); Neutrophil # 6.06 X10^3/uL (2.7-7.7); Neutrophil % 72.9 % (47-70); Platelet Count 198 K/mm3 (150-450); RBC Distribution Width CV 12.6 % (11.6-14.6); RBC Distribution Width SD 43.6 fl (35.1-43.9); Red Blood Count 5.07 M/mm3 (4.6-6.2); White Blood Count 8.3 K/mm3 (4.4-11.0)
[2022-02-05 13:35] LABS: Vitamin D,25 Hydroxy 15.8 ng/mL
[2022-02-05 14:06] LABS: ALB/GLOB Ratio 0.8 RATIO (0.9-2.4); AST(SGOT) 16 U/L (15-37); Alanine Aminotransfer ALT/SGPT 30 U/L (16-61); Albumin, Serum 3.5 g/dL (3.2-5.0); Alkaline Phosphatase 115 U/L (45-117); Anion Gap 5 (5-15); BUN 14 mg/dL (7-18); BUN/Creat Ratio 9.9 RATIO (10-20); Calcium,Total 8.9 mg/dL (8.5-10.1); Chloride 103 mmol/L (98-107); Creatinine, Serum 1.42 mg/dL (0.70-1.30); EST Glomerular Filtration Rate 52 mL/min (>60); Est Glom Filt Rate - Afr Amer 63 mL/min (>60); Globulin 4.4 g/dL (2.2-4.2); Glucose 190 mg/dL (74-106); Potassium 3.6 mmol/L (3.5-5.1); Protein, Total 7.9 g/dL (6.4-8.2); Sodium Level 138 mmol/L (136-145); Thyroid Stim Hormone (TSH) 1.81 uIU/mL (0.358-3.74)
== END | disposition home or self-care (01) ==
LOC: POLAB3 09:55
PROVIDERS: PCP Family Medicine Geriatric Medicine; Visit Provider Family Medicine Geriatric Medicine
DX: I10 Essential (primary) hypertension (principal); E55.9 Vitamin D deficiency, unspecified; E78.5 Hyperlipidemia, unspecified
CPT/HCPCS: 36415; 80053; 82306; 84443; 85025

== ENCOUNTER → 2022-03-20 | Outpatient (CLI) | payer MEDICARE, OTHER, SELFPAY ==
[2022-03-20 12:42] LABS: Absolute Lymphocyte Count 1.64 X10^3/uL (0.83-4.51); Basophil# 0.02 X10^3/uL; Basophil% 0.2 % (0-1); Eosinophil# 0.11 X10^3/uL; Eosinophils% 1.3 % (0-5); Hematocrit 44.4 % (40-54); Hemoglobin 14.8 g/dL (13.0-16.5); Lymphocyte # 1.64 X10^3/ul (0.83-4.51); Lymphocyte % 19.8 % (19-41); Mean Corp Hgb Conc 33.3 g/dL (32-36); Mean Corpuscular Hgb 30.7 pg (27.0-32.0); Mean Corpuscular Volume 92.1 fL (80-94); Mean Platelet Vol. 10.7 fl (6.2-12.0); Monocyte# 0.46 X10^3/uL; Monocyte% 5.6 % (0-10); NRBC Flagged by Analyzer 0.4 % (0-5); Neutrophil # 6.01 X10^3/uL (2.7-7.7); Neutrophil % 72.7 % (47-70); Platelet Count 205 K/mm3 (150-450); RBC Distribution Width CV 12.3 % (11.6-14.6); RBC Distribution Width SD 41.9 fl (35.1-43.9); Red Blood Count 4.82 M/mm3 (4.6-6.2); White Blood Count 8.3 K/mm3 (4.4-11.0)
[2022-03-20 13:07] LABS: Vitamin D,25 Hydroxy 15.3 ng/mL
[2022-03-20 13:07] LABS: ALB/GLOB Ratio 0.8 RATIO (0.9-2.4); AST(SGOT) 14 U/L (15-37); Alanine Aminotransfer ALT/SGPT 26 U/L (16-61); Albumin, Serum 3.3 g/dL (3.2-5.0); Alkaline Phosphatase 99 U/L (45-117); Anion Gap 7 (5-15); BUN 12 mg/dL (7-18); BUN/Creat Ratio 8.3 RATIO (10-20); Calcium,Total 8.3 mg/dL (8.5-10.1); Chloride 106 mmol/L (98-107); Creatinine, Serum 1.45 mg/dL (0.70-1.30); EST Glomerular Filtration Rate 51 mL/min (>60); Est Glom Filt Rate - Afr Amer 62 mL/min (>60); Globulin 4.2 g/dL (2.2-4.2); Glucose 146 mg/dL (74-106); PSA,Total - Annual Screen 0.85 ng/mL (0.00-4.00); Phosphorus 2.4 mg/dL (2.5-4.9); Potassium 3.8 mmol/L (3.5-5.1); Protein, Total 7.5 g/dL (6.4-8.2); Sodium Level 139 mmol/L (136-145); Thyroid Stim Hormone (TSH) 1.64 uIU/mL (0.358-3.74)
[2022-03-20 13:31] LABS: Protein, Urine (Random) 23.4 mg/dL (<11.9); Protein:Creat Ratio 115 mg/g CRE (0-200)
== END | disposition home or self-care (01) ==
PROVIDERS: PCP Family Medicine Geriatric Medicine; Visit Provider Internal Medicine Nephrology
DX: E55.9 Vitamin D deficiency, unspecified (principal); E11.65 Type 2 diabetes mellitus with hyperglycemia; I10 Essential (primary) hypertension; Z12.5 Encounter for screening for malignant neoplasm of prostate
CPT/HCPCS: 36415; 80053; 82306; 82570; 84100; 84153; 84156; 84443; 85025; G0103

== ENCOUNTER 2022-04-08 17:40 | Emergency (ER) | payer MEDICARE, OTHER, SELFPAY ==
[2022-04-08 17:41] VITALS: BP 183/83; PULSE 86; RESP 18; TEMP 36; O2SAT 100; BMI 31.8
[2022-04-08 18:04] VITALS: BP 192/90; PULSE 83; RESP 14; O2SAT 99
--- NOTE | 2022-04-08 18:04 | EKG12_ITS ---
Test Reason : DIZZINESS Blood Pressure : / mmHG Vent. Rate : 071 BPM Atrial Rate : 071 BPM P-R Int : 170 ms QRS Dur : 092 ms QT Int : 400 ms P-R-T Axes : 045 -36 001 degrees QTc Int : 434 ms Normal sinus rhythm Left axis deviation Incomplete right bundle branch block Left ventricular hypertrophy ( R in aVL , Romhilt-Amor ) Cannot rule out Septal infarct , age undetermined Abnormal ECG Confirmed by DANK SWAN, YAMILA ([id number]), food expeditor REGGIE HERNANDEZ ([id number]) on 04/11/2022 10:09:39 AM Referred By: JED Confirmed By:YAMILA WEEMS MD
--- NOTE | 2022-04-08 18:06 | CT_ITS ---
STUDY: CT BRAIN WITHOUT CONTRAST REASON FOR EXAM: Male, 72 years old. slurred speach, dizzy, walking into things Individualized dose optimization techniques were used for this CT. TECHNIQUE: Transaxial CT imaging of the brain was performed without administration of intravenous contrast material. COMPARISON: None FINDINGS: There are calcifications around the carotid artery. These are noted in the cavernous carotid arteries. Normal calvarium. Normal soft tissues. 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 There is mild cerebral atrophy with widening of the extra-axial spaces and ventricular dilatation. There are areas of decreased attenuation within the white matter tracts of the supratentorial brain, consistent with microvascular disease changes. Normal basal ganglia and thalami. Normal brainstem. There is mild cerebellar atrophy. There is no intracranial hemorrhage. There are no findings of an acute ischemic infarction. Normal visualized paranasal sinuses. ASPECTS Score for Acute Strokes: 12/17 CT/Brain/Head without Contrast IMPRESSION: There are no acute findings. Chronic involutional changes of the brain. Electronically Signed: Timothy Lagos MD at 18:53 EST ,
[2022-04-08 18:18] LABS: Absolute Lymphocyte Count 2.49 X10^3/uL (0.83-4.51); Absolute Neutrophil Count 6.6 X10^3/uL (2.0-7.7); Basophil# 0.05 X10^3/uL; Basophil% 0.5 % (0-1); Eosinophil# 0.13 X10^3/uL; Eosinophils% 1.3 % (0-5); Hematocrit 45.1 % (40-54); Hemoglobin 14.9 g/dL (13.0-16.5); Lymphocyte # 2.49 X10^3/ul (0.83-4.51); Lymphocyte % 25.3 % (19-41); Mean Corpuscular Hgb 30.6 pg (27.0-32.0); Mean Corpuscular Volume 92.6 fL (80-94); Mean Platelet Vol. 10.2 fl (6.2-12.0); Monocyte# 0.58 X10^3/uL; Monocyte% 5.9 % (0-10); NRBC Flagged by Analyzer 0 % (0-5); Neutrophil # 6.55 X10^3/uL (2.7-7.7); Neutrophil % 66.7 % (47-70); Platelet Count 211 K/mm3 (150-450); RBC Distribution Width CV 12.3 % (11.6-14.6); RBC Distribution Width SD 42.4 fl (35.1-43.9); Red Blood Count 4.87 M/mm3 (4.6-6.2); White Blood Count 9.8 K/mm3 (4.4-11.0)
[2022-04-08 18:31] LABS: Anion Gap 6 (5-15); BUN 16 mg/dL (7-18); BUN/Creat Ratio 9.5 RATIO (10-20); Calcium,Total 8.5 mg/dL (8.5-10.1); Chloride 108 mmol/L (98-107); Creatinine, Serum 1.68 mg/dL (0.70-1.30); EST Glomerular Filtration Rate 43 mL/min (>60); Est Glom Filt Rate - Afr Amer 52 mL/min (>60); Estimated Creatinine Clearance 43.58 ml/min; Glucose 174 mg/dL (74-106); Potassium 3.7 mmol/L (3.5-5.1); Sodium Level 142 mmol/L (136-145)
--- NOTE | 2022-04-08 18:42 | EDS_ITS ---
HPI <ANTOINETTE Levine - Last Filed: 04/08/22 22:27> History of Present Illness Chief Complaint: Dizziness Narrative Narrative: Patient presents today with his after falling 3 times yesterday due to feeling dizzy. He denies hitting his head and any injury. He is not on any blood thinners. states that over the past few days she has noticed that when he walks at times he will walk almost sideways and sometimes bumps into the wall. Left also states that she felt like he was slurring his speech intermittently yesterday and today. He has no prior history of stroke or TIA. He states his only health condition is diabetes mellitus. He reports that he attributes his falling to possibly having low blood sugar. He denies any weakness, dizziness, unsteadiness here today. PFSH <ANTOINETTE Levine - Last Filed: 04/08/22 22:27> [facility] Home Medications atorvastatin 40 mg tablet 40 mg PO QHS 03/20/20 [History Last Taken Unknown] metformin 1,000 mg tablet 1,000 mg PO BIDCM 03/20/20 [History Last Taken Unknown] potassium citrate 10 mEq (1,080 mg) tablet,extended release 10 meq PO DAILY 03/20/20 [History Last Taken Unknown] Allergy/AdvReac Type Severity Reaction Status Date / Time No Known Allergies Allergy Verified 04/08/22 17:41 Social History Smoking Status: Never smoker ROS <ANTOINETTE Levine - Last Filed: 04/08/22 22:27> ROS ED Constitutional Constitutional ED: Denies chills, fever(s) or sweats Eyes Eyes: Denies blurry vision or diplopia ENT ENT ED: Denies rhinorrhea or sore throat Cardiovascular Cardiovascular: Denies chest pain or palpitations Respiratory/Chest Respiratory/Chest: Denies cough, dyspnea, tachypnea or wheezing Gastrointestinal Gastrointestinal: Denies abdominal pain, constipation, diarrhea, nausea or vomiting Genitourinary Genitourinary ED: Denies dysuria, hematuria or urinary urgency Musculoskeletal Musculoskeletal: Denies arthralgias, back pain, myalgias or neck pain Integumentary Denies abscess, Abrasions or rash Neurologic Neurologic: Denies confusion, dizziness, paresthesias or weakness Psychiatric Psychiatric: Denies anxiety, depression, suicidal ideation or suicidal thoughts Allergic/Immunologic Allergic/Immunologic ED: Denies lip swelling, mouth swelling or urticaria EXAM <ANTOINETTE Levine - Last Filed: 04/08/22 22:27> Physical Exam Const Vital Signs: 04/08/22 17:41 04/08/22 18:04 04/08/22 18:04 Temperature 96.8 F L Temperature Source Temporal Pulse Rate 86 83 Respiratory Rate 18 14 Respiratory Effort Normal Non-Labored Blood Pressure 183/83 H 192/90 H Blood Pressure Mean 116 124 Pulse Ox 100 99 Oxygen Delivery Method Room Air Room Air 04/08/22 21:06 Temperature Temperature Source Pulse Rate Respiratory Rate Respiratory Effort Blood Pressure 171/84 H Blood Pressure Mean Pulse Ox Oxygen Delivery Method Positive well nourished, well developed and no apparent distress General Appearance ED: well developed HEENT Reports normocephalic, head/scalp atraumatic and TM's clear Tympanic Membrane ED: Yes TM's clear Mouth ED: Yes moist mucous membranes normal Eyes PERRL and EOMs intact bilaterally Neck full ROM and supple Chest Wall inspection of chest normal Resp normal respiratory effort and clear to auscultation bilaterally Cardio regular rate and regular rhythm GI soft to palpation, non-tender, non-distended and no masses Back/Spine normal ROM and normal to inspection Extremity normal to inspection and full ROM Neuro oriented x3, CN's II-XII intact bilaterally, moves all extremities, no focal motor deficits and no sensory deficits noted Sensorium / Orientation: awake and alert Motor Exam: strength 5/5 throughout Psych mental status grossly normal and thought process normal Skin no rashes or lesions noted and no wounds <Dr. Charlie Slade, - Last Filed: 04/08/22 19:29> Physical Exam Const Vital Signs: 04/08/22 17:41 04/08/22 18:04 04/08/22 18:04 Temperature 96.8 F L Temperature Source Temporal Pulse Rate 86 83 Respiratory Rate 18 14 Respiratory Effort Normal Non-Labored Blood Pressure 183/83 H 192/90 H Blood Pressure Mean 116 124 Pulse Ox 100 99 Oxygen Delivery Method Room Air Room Air 04/08/22 21:06 Temperature Temperature Source Pulse Rate Respiratory Rate Respiratory Effort Blood Pressure 171/84 H Blood Pressure Mean Pulse Ox Oxygen Delivery Method MDM <ANTOINETTE Levine - Last Filed: 04/08/22 22:27> MDM MDM Narrative Medical decision making narrative: Patient presenting due to unsteadiness on his feet as well as slurred speech. I have considered stroke, TIA, electrolyte abnormality, vertigo, anemia. I do not note any slurred speech here today. Neuro exam is normal. Patient is able to ambulate and walk in a straight line without any difficulty. states that she has noticed has been unsteady over the past few days at times. She states his slurred speech is very subtle and comes and goes over the past [address] obtained to rule out stroke and is negative for any acute intracranial abnormality. Patient did have elevated blood pressure here as well as been given a dose of clonidine. This brought his pressure from 192/90 to 169/91. Patient has been encouraged to follow-up with PCP on blood pressure control. I have encouraged patient to follow-up with PCP as soon as possible. Patient will be discharged home is comfortable with plan. Lab Data Attestation: I reviewed the patient's lab results. Lab results narrative: CBC negative for any leukocytosis and anemia, BMP negative for electrolyte abnormality, creatinine 1.68, GFR 52, glucose 174. UA negative for acute cystitis. Labs: Laboratory Results - last 24 hr 04/08/22 04/08/22 04/08/22 18:05 18:05 18:45 WBC 9.8 RBC 4.87 Hgb 14.9 Hct 45.1 MCV 92.6 MCH 30.6 MCHC 33.0 RDW Std Deviation 42.4 RDW Coeff of Jaleesa 12.3 Plt Count 211 MPV 10.2 Immature Gran % (Auto) 0.300 Neut % (Auto) 66.7 Lymph % (Auto) 25.3 [place] % (Auto) 5.9 Eos % (Auto) 1.3 Baso % (Auto) 0.5 Absolute Neuts (auto) 6.6 Absolute Lymphs (auto) 2.49 Nucleated RBC % 0 Sodium 142 Potassium 3.7 Chloride 108 H Carbon Dioxide 28.0 Anion Gap 6 BUN 16 Creatinine 1.68 H Estim Creat Clear Calc 43.58 Est GFR (MDRD) Af Amer 52 L Est GFR (MDRD) Non-Af 43 L BUN/Creatinine Ratio 9.5 L Glucose 174 H Calcium 8.5 Urine Color Yellow Urine Clarity Clear Urine pH 6.5 Ur Specific [place] 1.015 Urine Protein 15 H Urine Glucose (UA) 50 H Urine Ketones Negative Urine Occult Blood Negative Urine Nitrite Negative Urine Bilirubin Negative Urine Urobilinogen Normal Ur Leukocyte Esterase Negative Urine RBC 0 SEEN Urine WBC 0 SEEN Ur Squamous Epith Cells 0 SEEN Urine Bacteria 0 SEEN Urine Mucus 0 SEEN Radiography Diagnostic Testing: Clinical Impression(s) from Imaging Studies Brain CT 04/08/22 18:06 IMPRESSION: There are no acute findings. Chronic involutional changes of the brain. Electronically Signed: Timothy Lagos MD at 18:53 EST , Brain CT also reviewed and interpreted by attending ED physician. <Dr. Charlie Slade, DO - Last Filed: 04/08/22 19:29> [facility] Lab Data Labs: Laboratory Results - last 24 hr 04/08/22 04/08/22 04/08/22 18:05 18:05 18:45 WBC 9.8 RBC 4.87 Hgb 14.9 Hct 45.1 MCV 92.6 MCH 30.6 MCHC 33.0 RDW Std Deviation 42.4 RDW Coeff of [place] 12.3 Plt Count 211 MPV 10.2 Immature Gran % (Auto) 0.300 Neut % (Auto) 66.7 Lymph % (Auto) 25.3 [place] % (Auto) 5.9 Eos % (Auto) 1.3 Baso % (Auto) 0.5 Absolute Neuts (auto) 6.6 Absolute Lymphs (auto) 2.49 Nucleated RBC % 0 Sodium 142 Potassium 3.7 Chloride 108 H Carbon Dioxide 28.0 Anion Gap 6 BUN 16 Creatinine 1.68 H Estim Creat Clear Calc 43.58 Est GFR (MDRD) Af Amer 52 L Est GFR (MDRD) Non-Af 43 L BUN/Creatinine Ratio 9.5 L Glucose 174 H Calcium 8.5 Urine Color Yellow Urine Clarity Clear Urine pH 6.5 Ur Specific [place] 1.015 Urine Protein 15 H Urine Glucose (UA) 50 H Urine Ketones Negative Urine Occult Blood Negative Urine Nitrite Negative Urine Bilirubin Negative Urine Urobilinogen Normal Ur Leukocyte Esterase Negative Urine RBC 0 SEEN Urine WBC 0 SEEN Ur Squamous Epith Cells 0 SEEN Urine Bacteria 0 SEEN Urine Mucus 0 SEEN Radiography Diagnostic Testing: Clinical Impression(s) from Imaging Studies Brain CT 04/08/22 18:06 IMPRESSION: There are no acute findings. Chronic involutional changes of the brain. Electronically Signed: Timothy Lagos MD at 18:53 EST Reading Location ID and State: [facility] / [place] , Service support , Treatment and Re-Evaluation Narrative: I have personally performed a face to face assessment of the patient and have reviewed the DONNELL Note. I performed a substantive portion of the visit including all aspects of the following. My bedolla findings include: History: Patient presents with ataxia that began last night. Patient states that he is having difficulty walking because he was off balance. Patient states he also started slurring his words last night. Patient denies any weakness. Patient denies any headaches. Patient denies any nausea or vomiting. Patient denies any fevers or chills. Exam: Vital signs are stable except for an elevated blood pressure of 183/83. Patient is afebrile. Patient is in no acute distress. Cranial nerves II through XII are intact. Strength is 5/5 bilaterally upper and lower extremities. There are no sensory deficits noted. Heart was regular rate and rhythm. Lungs are clear and equal bilaterally. Abdomen is soft. Bowel sounds are normal. There is no tenderness. There is no guarding noted. Medical Decision Making: Differential diagnosis includes stroke, TIA, vertigo, labyrinthitis, urinary tract infection, electrolyte abnormality, infection, and anemia. CBC was obtained to assess for leukocytosis and anemia. Urinalysis was obtained to assess for urinary tract infection. Basic metabolic profile was obtained to assess for electrolyte abnormality and renal function. CT scan of the brain was obtained to assess for stroke. EKG was obtained to assess for cardiac ischemia and dysrhythmia. CBC was reviewed and was within normal limits. Basic metabolic profile was reviewed and was within normal limits. Urinalysis was reviewed and does not show any evidence of urinary tract infection or hematuria. CT scan of the brain was reviewed independently by myself and did not show any acute intracranial abnormality. Radiologist also interpreted the CT scan and agrees. There are chronic involutional changes of the brain. EKG was interpreted by myself. There is a normal sinus rhythm. There are no acute ST or T wave changes noted. Patient was ambulated here in the emergency department. Patient ambulated without difficulty. Patient was advised of his findings. Patient was instructed to follow-up with his primary care physician in 5 to 7 days. Patient understood and was agreeable with the plan. All questions were answered. Discharge Plan Triage Chief Complaint: Dizziness ED Midlevel Provider: Radha Church ED Provider: Charlie Slade Dx/Rx/DC Orders Clinical Impression: Elevated blood pressure reading without diagnosis of hypertension, Aphasia, Dizziness Instructions: ED Dizziness, Uncertain Cause, ED High Blood Pressure Hyperten yamil Prescriptions: No Action atorvastatin 40 MG tablet 40 mg PO QHS potassium citrate 10 MEQ tablet extended release 10 meq PO DAILY metformin 1,000 MG tablet 1,000 mg PO BIDCM Primary Care Provider: Bryant Short Chi Referrals: Bryant Short Chi, MD [Primary Care Provider] - 2 Days Activity Restrictions/Additional Instructions: Please follow-up with PCP as soon as possible. Please return for any new or worsening of symptoms. Disposition Disposition: Home, Self Care Discharge Date/Time: 04/08/22 21:07
[2022-04-08 18:55] LABS: Bacteria 0 SEEN /hpf (None Seen); Mucous, Urine 0 SEEN /hpf (<or=2+); Red Blood Cells-Urine 0 SEEN /hpf (0-5); Squamous Epithelial Cells - UA 0 SEEN /hpf (0-5); White Blood Cells 0 SEEN /hpf (0-5)
[2022-04-08 18:58] LABS: Color, Urine Yellow (Yellow); Glucose, Dipstick 50 mg/dl (Normal); Ketone-Dipstick Negative (Negative); Leukocyte Esterase-Dipstick Negative /ul (Negative); Nitrite-Dipstick Negative (Negative); Occult Blood-Urine Negative /ul (Negative); Protein-Dipstick 15 mg/dl (Negative); Specific Gravity, Urine 1.015 (1.002-1.030); Urine Bilirubin Dipstick Negative (Negative); Urine Clarity Clear (Clear); Urine Urobilinogen Normal (Normal); Urine pH 6.5 (5.0 - 8.0)
[2022-04-08] MEDS: cloNIDine HCl 0.1 MG Tablet PO (19:51)
[2022-04-08 21:06] VITALS: BP 171/84
== END 2022-04-08 21:07 | disposition home or self-care (01) ==
PROVIDERS: Physician Assistant; Emergency Provider Emergency Medicine; PCP Family Medicine Geriatric Medicine; Visit Provider Emergency Medicine
DX: R03.0 Elevated blood-pressure reading, without diagnosis of hypertension (principal); R47.01 Aphasia; R42 Dizziness and giddiness
CPT/HCPCS: 70450; 80048; 81001; 85025; 93005; 99283; A4216

== ENCOUNTER → 2022-04-10 | Outpatient (CLI) | payer MEDICARE, OTHER, SELFPAY ==
--- NOTE | 2022-04-10 11:15 | RAD_ITS ---
STUDY: X-RAY - ABDOMEN/PELVIS REASON FOR EXAM: Male, 72 years old. DIARRHEA TECHNIQUE: Frontal views COMPARISON: None. FINDINGS: Normal visualized lung bases. There is an unremarkable bowel gas pattern. There is no demonstrated free abdominal air. The visualized liver, spleen and kidneys are grossly normal in size and morphology. Normal soft tissue structures. Degenerative vertebral changes. RAD/Abd Inc Decub and/or Erect IMPRESSION: Normal x-ray examination of the abdomen and pelvis. Electronically Signed: Milton Mari DO at 22:45 EST ,
[2022-04-10 13:09] LABS: Absolute Lymphocyte Count 1.71 X10^3/uL (0.83-4.51); Absolute Neutrophil Count 5.9 X10^3/uL (2.0-7.7); Basophil# 0.02 X10^3/uL; Basophil% 0.2 % (0-1); Eosinophils% 1.2 % (0-5); Hematocrit 43.4 % (40-54); Hemoglobin 14.7 g/dL (13.0-16.5); Lymphocyte # 1.71 X10^3/ul (0.83-4.51); Mean Corp Hgb Conc 33.9 g/dL (32-36); Mean Corpuscular Hgb 30.9 pg (27.0-32.0); Mean Corpuscular Volume 91.4 fL (80-94); Monocyte# 0.44 X10^3/uL; Monocyte% 5.4 % (0-10); NRBC Flagged by Analyzer 0 % (0-5); Neutrophil # 5.88 X10^3/uL (2.7-7.7); Neutrophil % 72.1 % (47-70); Platelet Count 195 K/mm3 (150-450); RBC Distribution Width CV 12.5 % (11.6-14.6); RBC Distribution Width SD 41.9 fl (35.1-43.9); Red Blood Count 4.75 M/mm3 (4.6-6.2); White Blood Count 8.2 K/mm3 (4.4-11.0)
[2022-04-10 13:20] LABS: Anion Gap 9 (5-15); BUN 16 mg/dL (7-18); Calcium,Total 8.6 mg/dL (8.5-10.1); Chloride 107 mmol/L (98-107); Creatinine, Serum 1.45 mg/dL (0.70-1.30); EST Glomerular Filtration Rate 51 mL/min (>60); Est Glom Filt Rate - Afr Amer 62 mL/min (>60); Glucose 155 mg/dL (74-106); Potassium 3.7 mmol/L (3.5-5.1); Sodium Level 141 mmol/L (136-145)
== END | disposition home or self-care (01) ==
PROVIDERS: PCP Family Medicine Geriatric Medicine; Referring Provider Family Medicine Geriatric Medicine; Visit Provider Family Medicine Geriatric Medicine
DX: N18.31 Chronic kidney disease, stage 3a (principal); R19.7 Diarrhea, unspecified
CPT/HCPCS: 36415; 74019; 80048; 85025

== ENCOUNTER → 2022-04-11 | Outpatient (CLI) | payer MEDICARE, OTHER, SELFPAY | END | disposition home or self-care (01) | LOC: LABSPEC 16:24 | PROVIDERS: PCP Family Medicine Geriatric Medicine; Visit Provider Family Medicine Geriatric Medicine | DX: R19.7 Diarrhea, unspecified (principal) | CPT/HCPCS: 82274; 83630; 87177; 87209; 87493; 87506 ==

== ENCOUNTER 2022-04-15 19:23 | Emergency (ER) | payer MEDICARE, OTHER, SELFPAY ==
[2022-04-15 19:24] VITALS: BP 165/98; PULSE 80; PULSE 83; RESP 16; TEMP 36.2; O2SAT 100; BMI 33.0
--- NOTE | 2022-04-15 22:18 | EKG12_ITS ---
Test Reason : Blood Pressure : / mmHG Vent. Rate : 065 BPM Atrial Rate : 065 BPM P-R Int : 164 ms QRS Dur : 102 ms QT Int : 412 ms P-R-T Axes : 050 -32 -87 degrees QTc Int : 428 ms Normal sinus rhythm Left axis deviation Minimal voltage criteria for LVH, may be normal variant ( R in aVL ) Nonspecific T wave abnormality Abnormal ECG Confirmed by DANK SWAN, YAMILA ([id number]), international editorial producer REGGIE HERNANDEZ ([id number]) on 04/18/2022 11:30:05 AM Referred By: Confirmed By:YAMILA WEEMS MD
--- NOTE | 2022-04-15 22:53 | RAD_ITS ---
INDICATION: Neuro deficit, acute, stroke suspected EXAMINATION/TECHNIQUE: X-RAY - XR Chest 1 View COMPARISON: None. FINDINGS: LINES/DEVICES: None. LUNGS: No consolidation, edema or effusion. No pneumothorax. MEDIASTINUM AND CARDIOVASCULAR STRUCTURES: Cardiac silhouette not enlarged. Central airways and mediastinal contour are unremarkable. RAD/Chest 1 View IMPRESSION: No radiographic evidence of acute cardiopulmonary disease. Electronically Signed: Justino Emanuel MD at 23:07 EST ,
--- NOTE | 2022-04-15 23:11 | EDS_ITS ---
HPI History of Present Illness Chief Complaint: Numb/Ting Narrative Narrative: 72-year-old male presenting with intermittent aphasia/dysphagia. Is been about a week since he had the symptoms start. Patient seen in the emergency room for the symptoms. Ultimately was discharged. He followed up with his PCP who did order an MRI and the patient was found to have some acute stroke on MRI today. Patient reports that he had symptoms of difficulty speaking intermittently but these have resolved. He has had numbness in the right hand and also in the left hand. Currently states in the left hand. He is not having difficulty moving the left hand. He states he has had some weakness in his legs and feels like he could fall. He denies any head injury or LOC. Patient admits to a history of diabetes but states he has no other medical problems. PFSH PFS Home Medications atorvastatin 40 mg tablet 40 mg PO QHS 03/20/20 [History Last Taken Unknown] metformin 1,000 mg tablet 1,000 mg PO BIDCM 03/20/20 [History Last Taken Unknown] potassium citrate 10 mEq (1,080 mg) tablet,extended release 10 meq PO DAILY 03/20/20 [History Last Taken Unknown] Allergy/AdvReac Type Severity Reaction Status Date / Time No Known Allergies Allergy Verified 04/08/22 17:41 Social History Smoking Status: Never smoker ROS ROS ED Constitutional Constitutional ED: Denies chills, fever(s) or sweats Eyes Eyes: Denies blurry vision or change in vision ENT ENT ED: Denies ear pain or sore throat Cardiovascular Cardiovascular: Denies chest pain, palpitations or racing heartbeat Respiratory/Chest Respiratory/Chest: Denies cough, dyspnea or sputum Gastrointestinal Gastrointestinal: Denies abdominal pain, constipation, diarrhea, nausea or vomiting Genitourinary Genitourinary ED: Denies dysuria, hematuria or urinary frequency Musculoskeletal Musculoskeletal: Denies arthralgias, myalgias or neck pain Integumentary Denies abscess, Abrasions or rash Neurologic Neurologic: Denies headache(s), paresthesias or weakness Psychiatric Psychiatric: Denies anxiety, depression, suicidal ideation or suicidal thoughts Endocrine Endocrinology: Denies polydipsia or polyuria EXAM Physical Exam Const Vital Signs: 04/15/22 19:24 04/15/22 19:24 04/15/22 23:24 Temperature 97.2 F L 97.2 F L Temperature Source Temporal Temporal Pulse Rate 80 83 Respiratory Rate 16 16 Blood Pressure 165/98 H 165/98 H Blood Pressure Mean 120 120 Pulse Ox 100 100 99 Oxygen Delivery Method Room Air Room Air Room Air 04/15/22 22:18 04/16/22 00:27 Temperature Temperature Source Pulse Rate 74 Respiratory Rate 13 Blood Pressure 156/73 H Blood Pressure Mean 100 Pulse Ox 98 Oxygen Delivery Method Room Air Room Air Positive well nourished General Appearance ED: NAD HEENT Reports moist mucous membranes Eyes PERRL and EOMs intact bilaterally Neck no lymphadenopathy Chest Wall inspection of chest normal and palpation of chest normal Resp normal respiratory effort and clear to auscultation bilaterally Auscultation: Negative for rales, rhonchi or wheezes GI normal to inspection, nondistended, normoactive bowel sounds Back/Spine no CVA tenderness Neuro oriented x3 and CN's II-XII intact bilaterally Sensorium / Orientation: alert Psych mental status grossly normal NIHSS NIHSS Initial: 1a Level of Consciousness: 0 1b LOC Questions (Score 2 if aphasic/stupor): 0 1c LOC Commands (Only score 1st attempt): 0 2 Best Gaze (If aphasic, use reflexive mvmts.): 0 3 Visual: 0 4 Facial Palsy: 0 5 Motor Arm Right (UN = amputation/fusion): 0 5 Motor Arm Left: 0 6 Motor Leg Right: 0 6 Motor Leg Left: 0 7 Limb ataxia (Only + if out of proportion): 0 8 Sensory (Aphasia/stupor=0 or 1, coma=2): 1 9 Best Language: 0 10 Dysarthria (mute, coma=2, intubated=UN): 0 11 Extinction and Inattention (only scored if +): 0 Total Score: 1 MDM MDM MDM Narrative Medical decision making narrative: Patient presenting with numbness in the left hand. He states has been here for 2 weeks and his symptoms of stroke he believes started about a week ago. He describes these as weakness and near falling. He has had difficulty speaking at times. Patient had outpatient MRI today which showed subacute stroke. Patient states his only medical problem is diabetes. Patient is not a candidate for tPA as this has been about a week. Review of the MRI shows Left midbrain infarct appears subacute. Patient given aspirin. CBC to assess hemoglobin, hematocrit, platelet count, differential. BMP to assess renal function, electrolytes, glucose, anion gap. Regulation studies ordered. High-sensitivity troponin is added. Patient not reporting any chest pain. EKG will be performed to assess for dysrhythmia/arrhythmia. Patient well-appearing with an NIH stroke scale score of 1 for decree sensation in the left hand. Suspect he will need to be admitted for further stroke work-up. Patient CBC and BMP appear to be stable. Platelets studies normal. High-sensitivity troponin is 15. EKG sinus rhythm with a ventricular to 65 bpm on my interpretation. Chest x-ray on my dictation also shows no acute cardiopulmonary process. Radiology services agrees. Patient discussed with hospitalist for admission. [id number] is 4. discussed patient with the hospitalist who feel the patient met criteria for admission. Patient discussed with primary care physician Dr. Short who stated that he will see the patient at 9 AM in the morning and will get the rest of the imaging studies and work-up. Discussed with the patient he is amenable to this. Precautions were discussed Impression 1. Subacute stroke 2. Paresthesia Lab Data Attestation: I reviewed the patient's lab results. Labs: Laboratory Results - last 24 hr 04/15/22 04/15/22 04/15/22 22:55 22:55 22:55 WBC 9.1 RBC 4.37 L Hgb 13.6 Hct 41.2 MCV 94.3 H MCH 31.1 MCHC 33.0 RDW Std Deviation 43.7 RDW Coeff of Jaleesa 12.6 Plt Count 198 MPV 10.7 Immature Gran % (Auto) 0.300 Neut % (Auto) 63.4 Lymph % (Auto) 25.7 [place] % (Auto) 8.0 Eos % (Auto) 2.3 Baso % (Auto) 0.3 Absolute Neuts (auto) 5.8 Absolute Lymphs (auto) 2.34 Nucleated RBC % 0 PT 13.6 INR 1.1 APTT 27.5 Sodium 142 Potassium 3.6 Chloride 111 H Carbon Dioxide 26.0 Anion Gap 5 BUN 15 Creatinine 1.41 H Estim Creat Clear Calc 51.92 Est GFR (MDRD) Af Amer 64 Est GFR (MDRD) Non-Af 53 L BUN/Creatinine Ratio 10.6 Glucose 163 H Calcium 8.2 L Troponin I High Sens 15 Radiography Diagnostic Testing: Clinical Impression(s) from Imaging Studies Chest X-Ray 04/15/22 22:53 IMPRESSION: No radiographic evidence of acute cardiopulmonary disease. Electronically Signed: Justino Emanuel MD at 23:07 EST , Stroke Documentation Questions Stroke Team Activated: No Reviewed Inclusion/Exclusion criteria: No IV Thrombolytic Administered: No No contraindications from thrombolytic administration: Yes Risks, Benefits, Alternatives Discussed: No Not given: Patient refusal: No Discharge Plan Triage Chief Complaint: Numb/Ting ED Provider: Aki Ozuna Dx/Rx/DC Orders Prescriptions: No Action atorvastatin 40 MG tablet 40 mg PO QHS potassium citrate 10 MEQ tablet extended release 10 meq PO DAILY metformin 1,000 MG tablet 1,000 mg PO BIDCM Primary Care Provider: Bryant Short Chi Referrals: Bryant Short Chi, MD [Primary Care Provider] -
[2022-04-15 23:24] VITALS: O2SAT 99
[2022-04-15 23:46] LABS: Absolute Lymphocyte Count 2.34 X10^3/uL (0.83-4.51); Absolute Neutrophil Count 5.8 X10^3/uL (2.0-7.7); Basophil# 0.03 X10^3/uL; Basophil% 0.3 % (0-1); Eosinophil# 0.21 X10^3/uL; Eosinophils% 2.3 % (0-5); Hematocrit 41.2 % (40-54); Hemoglobin 13.6 g/dL (13.0-16.5); Lymphocyte # 2.34 X10^3/ul (0.83-4.51); Lymphocyte % 25.7 % (19-41); Mean Corpuscular Hgb 31.1 pg (27.0-32.0); Mean Corpuscular Volume 94.3 fL (80-94); Mean Platelet Vol. 10.7 fl (6.2-12.0); Monocyte# 0.73 X10^3/uL; NRBC Flagged by Analyzer 0 % (0-5); Neutrophil # 5.75 X10^3/uL (2.7-7.7); Neutrophil % 63.4 % (47-70); Platelet Count 198 K/mm3 (150-450); RBC Distribution Width CV 12.6 % (11.6-14.6); RBC Distribution Width SD 43.7 fl (35.1-43.9); Red Blood Count 4.37 M/mm3 (4.6-6.2); White Blood Count 9.1 K/mm3 (4.4-11.0)
[2022-04-15] MEDS: Aspirin 325 MG Tablet PO (23:46)
[2022-04-16 00:03] LABS: Anion Gap 5 (5-15); BUN 15 mg/dL (7-18); BUN/Creat Ratio 10.6 RATIO (10-20); Calcium,Total 8.2 mg/dL (8.5-10.1); Chloride 111 mmol/L (98-107); Creatinine, Serum 1.41 mg/dL (0.70-1.30); EST Glomerular Filtration Rate 53 mL/min (>60); Est Glom Filt Rate - Afr Amer 64 mL/min (>60); Estimated Creatinine Clearance 51.92 ml/min; Glucose 163 mg/dL (74-106); Potassium 3.6 mmol/L (3.5-5.1); Sodium Level 142 mmol/L (136-145); Troponin-I HS 15 pg/mL (3.0-78.0)
[2022-04-16 00:27] VITALS: BP 156/73; PULSE 74; RESP 13; O2SAT 98
[2022-04-16 00:35] LABS: International Normalized Ratio 1.1; Partial Thromboplast Time 27.5 Seconds (24.1-36.2); Prothrombin Time (Protime)PT. 13.6 SECONDS (11.7-14.9)
--- NOTE | 2022-04-16 00:45 | HP.PCM.HOS_ITS ---
HPI - General HPI Narrative JEREMY QUINTERO, is a 72 M who presents [facility] Home Medications atorvastatin 40 mg tablet 40 mg PO QHS 03/20/20 [History Last Taken Unknown] metformin 1,000 mg tablet 1,000 mg PO BIDCM 03/20/20 [History Last Taken Unknown] potassium citrate 10 mEq (1,080 mg) tablet,extended release 10 meq PO DAILY 03/20/20 [History Last Taken Unknown] Allergy/AdvReac Type Severity Reaction Status Date / Time No Known Allergies Allergy Verified 04/08/22 17:41 Social History Smoking Status: Never smoker Vital Signs Vital Signs Vital Signs: 04/15/22 19:24 04/15/22 19:24 04/15/22 23:24 Temperature 97.2 F L 97.2 F L Temperature Source Temporal Temporal Pulse Rate 80 83 Respiratory Rate 16 16 Blood Pressure 165/98 H 165/98 H Blood Pressure Mean 120 120 Pulse Ox 100 100 99 Oxygen Delivery Method Room Air Room Air Room Air 04/15/22 22:18 04/16/22 00:27 Temperature Temperature Source Pulse Rate 74 Respiratory Rate 13 Blood Pressure 156/73 H Blood Pressure Mean 100 Pulse Ox 98 Oxygen Delivery Method Room Air Room Air Weight Weight: 107.6 kg Body Mass Index (BMI) 33.0 Results Lab / Micro Data Result Diagrams: 04/15/22 22:55 04/15/22 22:55 Labs: Laboratory Results - last 24 hr 04/15/22 22:55: WBC 9.1, RBC 4.37 L, Hgb 13.6, Hct 41.2, MCV 94.3 H, MCH 31.1, MCHC 33.0, RDW Std Deviation 43.7, RDW Coeff of Jaleesa 12.6, Plt Count 198, MPV 10.7, Immature Gran % (Auto) 0.300, Neut % (Auto) 63.4, Lymph % (Auto) 25.7, Towner % (Auto) 8.0, Eos % (Auto) 2.3, Baso % (Auto) 0.3, Absolute Neuts (auto) 5.8, Absolute Lymphs (auto) 2.34, Nucleated RBC % 0 04/15/22 22:55: PT 13.6, INR 1.1, APTT 27.5 04/15/22 22:55: Sodium 142, Potassium 3.6, Chloride 111 H, Carbon Dioxide 26.0, Anion Gap 5, BUN 15, Creatinine 1.41 H, Estim Creat Clear Calc 51.92, Est GFR (MDRD) Af Amer 64, Est GFR (MDRD) Non-Af 53 L, BUN/Creatinine Ratio 10.6, Glucose 163 H, Calcium 8.2 L, Troponin I High Sens 15 Radiology Impression Chest X-Ray 04/15/22 22:53 IMPRESSION: No radiographic evidence of acute cardiopulmonary disease. Electronically Signed: Justino Emanuel MD at 23:07 EST ,
== END 2022-04-16 01:52 | disposition home or self-care (01) ==
PROVIDERS: Emergency Provider Student in an Organized Health Care Education/Training Program; PCP Family Medicine Geriatric Medicine; Visit Provider Student in an Organized Health Care Education/Training Program
DX: I63.9 Cerebral infarction, unspecified (principal); R47.01 Aphasia; R13.10 Dysphagia, unspecified; R47.9 Unspecified speech disturbances; R47.1 Dysarthria and anarthria
CPT/HCPCS: 70551; 71045; 80048; 84484; 85025; 85610; 85730; 93005; 99284; A4216

== ENCOUNTER → 2022-04-15 | Outpatient (CLI) | payer MEDICARE, OTHER, SELFPAY ==
--- NOTE | 2022-04-15 16:22 | MRI_ITS ---
We are attempting to reach an attending provider to discuss findings. An addendum with communication details will be sent when the communication is complete. STUDY: MRI BRAIN WITHOUT CONTRAST REASON FOR EXAM: Male, 72 years old. DYSARTHRIA, leg weakness TECHNIQUE: Standardized multiplanar fat and water weighted pulse sequences were obtained. COMPARISON: 04/08/[address] HEMISPHERES, CEREBELLUM AND BRAINSTEM: 1. The cerebral parenchyma, ventricular system, subarachnoid spaces have normal configuration. There is a normal gyral pattern. There is normal de león/white differentiation. No midline shift.. 2. The hemispheric white matter has normal appearance. 3. Small area of restricted diffusion in the central to leftward midbrain with T2/FLAIR hyperintensity corresponds to hypodensity on 04/08/2022 CT. 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 4. The cerebellum, brainstem, basilar and suprasellar cisterns have normal appearance. No Chiari malformation. PITUITARY: Infundibulum and pituitary have normal configuration. Midline structures appear normal. CSF SPACES: Appropriate for age. No hydrocephalus. Basal cisterns are patent. VESSELS: 1. There are normal flow voids noted in the great vessels at the skull base ORBITS AND PARANASAL SINUSES: 1. Both globes, extraocular muscles, optic nerves and retrobulbar fat appear unremarkable. 2. Paranasal sinuses are clear. BONY ELEMENTS: Bony elements of the cranial vault, facial skeleton and skull base have normal appearance. SCALP AND SOFT TISSUES: Normal appearance of the soft tissues of the scalp and the visualized face MRI/Brain without Contrast IMPRESSION: Left midbrain infarct appears subacute. Electronically Signed: Justino Emanuel MD at 17:53 EST ,
== END | disposition home or self-care (01) ==
PROVIDERS: PCP Family Medicine Geriatric Medicine; Visit Provider Family Medicine Geriatric Medicine
DX: R47.1 Dysarthria and anarthria (principal)
CPT/HCPCS: 70551

== ENCOUNTER → 2022-04-16 | Outpatient (CLI) | payer MEDICARE, OTHER, SELFPAY ==
--- NOTE | 2022-04-16 12:55 | CT_ITS ---
ACR Level 3 findings have been noted. An addendum which confirms receipt of the report will follow. EXAM: CT ANGIOGRAPHY HEAD AND NECK WITH INTRAVENOUS CONTRAST CLINICAL INDICATION: DYSARTHRIA, RECENT CVA TECHNIQUE: [place]/head and neck CT angiography protocol performed with intravenous contrast. This CT exam was performed using one or more of the following dose reduction techniques: automated exposure control, adjustment of the mA and/or kV according to patient size, and/or use of iterative reconstruction technique. This report was created using [employer] report generation technology. MIP reconstructed images were created and reviewed. CONTRAST: IV 100mL [id number] RADIATION DOSE: Total DLP: 1653.44 mGy-cm. COMPARISON: Cranial CT of 04/08/2022. Cranial MR of 04/15/2022. FINDINGS: HEAD: Nonenhanced cranial CT is unchanged. Subtle hypodensity again noted within the central midbrain, were restricted diffusion was noted on the recent MR. Old lacunar infarctions are again noted within the right basal ganglia with ex vacuo enlargement of the right frontal horn. Minimal cortical atrophy and patchy chronic small vessel ischemic changes are again noted. RIGHT ANTERIOR CEREBRAL ARTERY: Unremarkable. No significant stenosis at the visualized segments. Anterior communicating artery is present. No aneurysm. RIGHT MIDDLE CEREBRAL ARTERY: Proximal right M1 segment shows an approximately 7 mm in length segment of smooth, 50-69% stenosis. Additional short segment of 50-69% stenosis noted involving one of the right M2 branches, best seen on the axial images 98-103 of series 603. No aneurysm. No filling defect. RIGHT POSTERIOR CEREBRAL ARTERY: Small patent posterior communicating artery, which is severely narrowed distally. Right P2 segment shows multiple short segments of stenosis, including near occlusion both proximally and distally. No aneurysm. RIGHT INTRACRANIAL INTERNAL CAROTID ARTERY: Calcified plaque within the cavernous carotid artery causes less than 50% stenosis. Calcified plaque within the genu of the right cavernous carotid artery causes 50-69% stenosis. The supracavernous right ICA shows a short segment of severe stenosis with poststenotic dilatation. RIGHT INTRACRANIAL VERTEBRAL ARTERY: Dominant. No significant stenosis. No dissection or occlusion. LEFT ANTERIOR CEREBRAL ARTERY: Unremarkable. No significant stenosis at the visualized segments. No aneurysm. LEFT MIDDLE CEREBRAL ARTERY: No filling defect. Short segment smooth severe stenosis of one of the left M2 branches, best seen on the MIP axial images, images 86-92 of series 603. More distally, this vessel shows an additional short segment of 50-69% stenosis. One of the more more posterior left MCA sylvian branches shows a short segment of near occlusion, as noted on axial images 85-77 of series 603. No aneurysm. LEFT POSTERIOR CEREBRAL ARTERY: Left P2 segment shows an approximately 6 mm-like segment of smooth severe stenosis. No aneurysm. LEFT INTRACRANIAL INTERNAL CAROTID ARTERY: Calcified plaque within the cavernous segment causes less than 50% stenosis. Extensive calcified plaque noted within the supracavernous ICA, with near occlusion. LEFT INTRACRANIAL VERTEBRAL ARTERY: Short segment of weblike stenosis of the distal segment with 50-69% stenosis. No dissection or occlusion. BASILAR ARTERY: Unremarkable. No significant stenosis. No aneurysm. OTHER VASCULATURE: No vascular malformation. Dural venous sinuses enhance normally. No acute infarction identified. NECK: RIGHT COMMON CAROTID ARTERY: Unremarkable. No significant stenosis. No dissection or occlusion. RIGHT EXTRACRANIAL INTERNAL CAROTID ARTERY: Calcified and noncalcified plaque at the origin causes less than 50% stenosis. Noncalcified smooth plaque causes less than 50% stenosis of the extracranial ICA, approximately 3 cm distal to its origin. RIGHT EXTERNAL CAROTID ARTERY: Unremarkable. No occlusion. RIGHT EXTRACRANIAL VERTEBRAL ARTERY: There is limited visualization of the first segment limited by streak artifact. Dominant. LEFT COMMON CAROTID ARTERY: Mild smooth intimal thickening distally. No significant stenosis. No dissection or occlusion. LEFT EXTRACRANIAL INTERNAL CAROTID ARTERY: Calcified and noncalcified plaque within the proximal ICA causes less than 50% stenosis. No significant stenosis. No dissection or occlusion. LEFT EXTERNAL CAROTID ARTERY: Unremarkable. No occlusion. LEFT EXTRACRANIAL VERTEBRAL ARTERY: Limited visualization of the first segment due to streak artifact. Probable severe weblike stenosis at its origin. Focal smooth stenosis of the proximal second segment at the C5 level with severe stenosis at this point. BRACHIOCEPHALIC AND SUBCLAVIAN ARTERIES: Unremarkable as visualized. No occlusion or significant stenosis. LUNG APICES: Unremarkable as visualized. HEAD and NECK: BONES/JOINTS: C2/3 disc space is fused. No lytic lesion. CAROTID STENOSIS REFERENCE USING NASCET CRITERIA: % ICA stenosis = (1 - narrowest ICA diameter/diameter of distal cervical ICA) x 100. Mild - <50% stenosis. Moderate - 50-69% stenosis. Severe - 70-94% stenosis. Near occlusion - 95-99% stenosis. Occluded - 100% stenosis. CT/CTA Head AND Neck W/ Contrast IMPRESSION: No hemodynamically significant stenosis of the CCA bifurcations or extracranial internal carotid arteries. Multiple foci of hemodynamically significant stenosis of the intracranial vessels, including severe stenosis of the supracavernous right ICA, near occlusion of the supracavernous left ICA, moderate stenosis of the right M1 segment, stenosis of MCA sylvian branches bilaterally, and with stenoses of both posterior cerebral arteries. There are additional hemodynamically significant stenoses of the left vertebral artery. No aneurysm. No MCA filling defect. Nonstandard communication protocol initiated. Electronically Signed: David Hernandez MD at 0:55 EST ,
== END | disposition home or self-care (01) ==
LOC: CT 12:53
PROVIDERS: PCP Family Medicine Geriatric Medicine; Referring Provider Family Medicine Geriatric Medicine; Visit Provider Family Medicine Geriatric Medicine
DX: R47.1 Dysarthria and anarthria (principal)
CPT/HCPCS: 70496; 70498; Q9967

== ENCOUNTER → 2022-04-24 | Outpatient (CLI) | payer MEDICARE, OTHER, SELFPAY ==
--- NOTE | 2022-04-24 10:45 | CDU_ITS ---
Reason For Study: Carotid stenosis Rt. Velocities/BP Lt. Velocities/BP Prox CCA 102.3/18.8 cm/sec. Prox CCA 113.8/20.6 cm/sec. Mid CCA 108.4/21.2 cm/sec. Mid CCA 130.2/18.8. cm/sec. Dist CCA 130.2/24.3 cm/sec. Dist CCA 122.9/22.5 cm/sec. Prox ICA 135.7/17 cm/sec. Prox ICA 110.1/13.3 cm/sec. Mid ICA 106.5/27.9 cm/sec. Mid ICA 90/24.3 cm/sec. Dist ICA 71.8/18.8 cm/sec. Dist ICA 86.4/24.3 cm/sec. Rt. ICA/CCA = 1.25. Lt. ICA/CCA = 0.90. Prox ECA 108.3/11.5 cm/sec. Prox ECA 106.5/13.3 cm/sec. Rt. Vert. 86.4/24.3 cm/sec. Lt. Vert. 58.1/16.3 cm/sec. Right Extracranial There is homogeneous, smooth atherosclerotic plaque noted in the right common carotid artery. There is heterogeneous, irregular atherosclerotic plaque noted in the right internal carotid artery. There is intimal thickening but no significant atherosclerotic plaque noted in the right external carotid artery. Antegrade flow is noted in the right vertebral artery. Left Extracranial There is homogeneous, smooth atherosclerotic plaque noted in the left common carotid artery. There is intimal thickening but no significant atherosclerotic plaque noted in the left internal carotid artery. There is heterogeneous, smooth atherosclerotic plaque noted in the left external carotid artery. Antegrade flow is noted in the left vertebral artery. Procedure Carotid Duplex 74145. This is a Carotid Duplex examination using B-mode, color flow and specral Doppler. Exam performed in department. VL/Carotid Duplex Ultrasound Interpretation Summary Mild (<50%) stenosis right extracranial internal carotid. Normal left extracranial internal carotid. Patent and antegrade vertebrals bilaterally. Ordering Physician: Bryant Short Chi Referring Physician: Bryant Short Chi Performed By: Lily Crump RVT
--- NOTE | 2022-04-24 10:45 | ECHOCS_ITS ---
Reason For Study: STROKE Procedure This was a 2D Doppler, Color Flow transthoracic echocardiogram. The study was technically difficult. Contrast injection was performed. Exam performed in department. Left Ventricle Normal LV size. Left ventricular systolic function is normal. The estimated ejection fraction is 60 %. No evidence for diastolic dysfunction. No regional wall motion abnormalities noted. Right Ventricle Normal RV size. Normal systolic function. Atria Normal left atrium. Normal right atrium. No doppler evidence for ASD. Bubble contrast study negative for right to left interatrial shunt. Mitral Valve There is no mitral annular calcification. Normal mitral valve. Trivial mitral valve insufficiency. Tricuspid Valve Normal tricuspid valve. Trivial tricuspid valve insufficiency. Unable to estimate RV systolic pressure due to insufficient tricuspid regurgitant envelope. Aortic Valve Trisinus/trileaflet aortic valve. Normal aortic valve. Pulmonic Valve The pulmonic valve is not well visualized. Great Vessels Normal sized aortic root. Pericardium/Pleural No pericardial effusion. Medication 22 gauge I.V. with prn adaptor inserted into right arm. Diluted definity 3ml given slow IV push to enhance endocardial definition. Performed a rapid injection of agitated mix of 9 cc saline and 1cc air to assess for atrial septal defect. MMode/2D Measurements & Calculations LVIDd: 4.5 cm IVSd: 0.91 cm Ao root diam: 2.8 cm LVIDs: 3.1 cm LVPWd: 0.77 cm RVDd: 3.4 cm FS: 31.6 % LAV(MOD-bp): 31.8 ml LVAd ap4: 23.8 cm2 SV(MOD-sp4): 37.0 ml LAV(MOD-bp) Indexed: 14.2 ml/m2 LVLd ap4: 7.5 cm LAV(MOD-sp2): 31.8 ml EDV(MOD-sp4): 60.9 ml LAV(MOD-sp4): 29.3 ml EDV(sp4-el): 63.6 ml LVAs ap4: 13.1 cm2 LVLs ap4: 6.0 cm ESV(MOD-sp4): 23.9 ml ESV(sp4-el): 24.4 ml EF(MOD-sp4): 60.8 % EF(sp4-el): 61.7 % SV(sp4-el): 39.3 ml LA A4 area: 13.6 cm2 LA dimension(2D): 3.4 cm RA A4 area: 10.7 cm2 Time Measurements MV dec time: 0.25 sec Doppler Measurements & Calculations MV E max jesus: 86.6 cm/sec Lat Peak E' Jesus: 12.1 cm/sec Med Peak E' Jesus: 7.7 cm/sec MV A max jesus: 86.3 cm/sec E/E' lat: 7.2 E/E' med: 11.3 MV E/A: 1.0 Ao V2 max: 113.6 cm/sec LV V1 max: 90.5 cm/sec PA V2 max: 95.8 cm/sec Ao max P.2 mmHg LV V1 max P.3 mmHg ECHO/Echo Complete W/ Contrast Interpretation Summary The study was technically difficult. Contrast injection was performed. Left ventricular systolic function is normal. The estimated ejection fraction is 60 %. Trivial mitral valve insufficiency. Trivial tricuspid valve insufficiency. Unable to estimate RV systolic pressure due to insufficient tricuspid regurgita nt envelope. No evidence for diastolic dysfunction. Bubble contrast study negative for right to left interatrial shunt. Ordering Physician: Bryant Short Chi Referring Physician: Bryant Short Chi Performed By: Lennie Reich RDCS
== END | disposition home or self-care (01) ==
LOC: CVS 10:40
PROVIDERS: PCP Family Medicine Geriatric Medicine; Referring Provider Family Medicine Geriatric Medicine; Visit Provider Family Medicine Geriatric Medicine
DX: I65.23 Occlusion and stenosis of bilateral carotid arteries (principal); I63.512 Cerebral infarction due to unspecified occlusion or stenosis of left middle cerebral artery
CPT/HCPCS: 93306; 93880; Q9957; A4216; C8929

== ENCOUNTER → 2022-06-19 | Outpatient (CLI) | payer MEDICARE, OTHER, SELFPAY ==
[2022-06-19 13:01] LABS: Absolute Lymphocyte Count 1.55 X10^3/uL (0.83-4.51); Absolute Neutrophil Count 3.8 X10^3/uL (2.0-7.7); Basophil# 0.02 X10^3/uL; Basophil% 0.3 % (0-1); Eosinophil# 0.15 X10^3/uL; Eosinophils% 2.5 % (0-5); Hematocrit 42.8 % (40-54); Hemoglobin 14.2 g/dL (13.0-16.5); Lymphocyte # 1.55 X10^3/ul (0.83-4.51); Lymphocyte % 26.2 % (19-41); Mean Corp Hgb Conc 33.2 g/dL (32-36); Mean Corpuscular Hgb 30.7 pg (27.0-32.0); Mean Corpuscular Volume 92.6 fL (80-94); Monocyte# 0.44 X10^3/uL; Monocyte% 7.4 % (0-10); NRBC Flagged by Analyzer 0 % (0-5); Neutrophil # 3.75 X10^3/uL (2.7-7.7); Neutrophil % 63.4 % (47-70); Platelet Count 175 K/mm3 (150-450); RBC Distribution Width CV 12.9 % (11.6-14.6); RBC Distribution Width SD 43.8 fl (35.1-43.9); Red Blood Count 4.62 M/mm3 (4.6-6.2); White Blood Count 5.9 K/mm3 (4.4-11.0)
[2022-06-19 13:15] LABS: Vitamin D,25 Hydroxy 31.6 ng/mL
[2022-06-19 13:53] LABS: ALB/GLOB Ratio 0.9 RATIO (0.9-2.4); AST(SGOT) 16 U/L (15-37); Alanine Aminotransfer ALT/SGPT 21 U/L (16-61); Albumin, Serum 3.4 g/dL (3.2-5.0); Alkaline Phosphatase 90 U/L (45-117); Anion Gap 5 (5-15); BUN 15 mg/dL (7-18); BUN/Creat Ratio 10.4 RATIO (10-20); Calcium,Total 8.4 mg/dL (8.5-10.1); Chloride 111 mmol/L (98-107); Cholesterol 146 mg/dL (200); Creatinine, Serum 1.44 mg/dL (0.70-1.30); EST Glomerular Filtration Rate 52 mL/min (>60); Est Glom Filt Rate - Afr Amer 62 mL/min (>60); Globulin 3.8 g/dL (2.2-4.2); Glucose 111 mg/dL (74-106); High Density Lipoprotein 40 mg/dL; Potassium 3.9 mmol/L (3.5-5.1); Protein, Total 7.2 g/dL (6.4-8.2); Sodium Level 139 mmol/L (136-145); Triglycerides 72 mg/dL; Very Low Density Lipoprotein 14 mg/dL (5-40)
== END | disposition home or self-care (01) ==
LOC: POLAB3 09:52
PROVIDERS: PCP Family Medicine Geriatric Medicine; Visit Provider Family Medicine Geriatric Medicine
DX: E78.5 Hyperlipidemia, unspecified (principal); E11.65 Type 2 diabetes mellitus with hyperglycemia; E55.9 Vitamin D deficiency, unspecified; I10 Essential (primary) hypertension
CPT/HCPCS: 36415; 80053; 80061; 82306; 84443; 85025

== ENCOUNTER 2022-07-09 10:00 | Outpatient (RCR) | payer MEDICARE, SELFPAY ==
--- NOTE | 2022-06-25 09:01 | HP.PTEVAL ---
Patient's Visit Information JEREMY QUINTERO is a 72 year old M referred to Physical Therapy by Dr. Bryant Short MD with a diagnosis of Multiple Falls. Date of Evaluation: 06/25/22 Physical Therapist: MALGORZATA Pike - Visit Plan Frequency: 2x /Week Duration: 6 Weeks Plan: 2X/ week for 6 weeks for LE strength, balance training, gait training, vestibular inputs including foam and head turns with gait with HEP.... Pt would like to resume his [employer] so instruction on the machines and what to do at [employer] will be helpful. HEP: standing heel and toe raises, sit to stands - Subjective He has fallen a couple of times. His leg got weak and he just fell. He was not dizzy or anything. He has no back issues and does not feel like his legs are weak all the time. 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 His strokes were about a month and a half ago. the strokes affected his L side. It still feels weak on the L side. He struggles to get up and off balance on his L side. No trouble in and out of bed or out of a chair. He goes up and down stairs recip with a hand rail. He is retired. He worked at [employer] and retired. He has no numbness in his L leg. He is a little bit more forgetful than he used to be. He is driving. - Objective Gait: Waks with slight limp on the L LE and has decreased arm swing on the L. LE MMT: R hip flex 11.4 and L 12.2. R knee ext 17.1 and L 16. R knee flex 9.6 and L knee flex 8.2. R hip abd 8.6 and L hip abd 10.3. Standing heel and toe raises: FGA: 18. CATSIB: 105. Stairs: Up and down stairs recip with 1 hand rail (increase weakness present with the L knee on eccentric part of steps). Sit to stand: X 5 (likes to put his R foot behind him to not use the L leg as much and does not have a good weight shift fw with sit to stand). - Balance/Special Test Scores Functional Gait Assessment Score: 18 % Disability: 40.0000 CATSIB Score (Max score 120 seconds): 105 Lower Extremity Functional Score: 70 - Goals Goal 1:: I HEP Goal Time Frame: 6-8 Weeks Goal 2:: Increase LE strength (at time of the eval: R hip flex 11.4 and L 12.2. R knee ext 17.1 and L 16. R knee flex 9.6 and L knee flex 8.2. R hip abd 8.6 and L hip abd 10.3). Goal Time Frame: 6-8 Weeks Goal 3:: Be able to sit to stand X 10 with no arms on first attempt Goal Time Frame: 6-8 Weeks Goal 4:: Increase balance by increasing CATSIB score (score at eval was 105) Goal Time Frame: 6-8 Weeks Goal 5:: Increase balance by increasing FGA score (score at eval 18) Goal Time Frame: 6-8 Weeks - Rehabilitation Potential Rehabilitation Potential: Good - Anticipated Interventions Patient/Client Instruction: Educate patient on: Condition, Plan of Care For the Purpose of:: To decrease pain, To increase ROM, To improve nutrient delivery to tissue, To improve muscle performance and motor function, To improve ability to perform ADL's, To increase tolerance to activity/condition/position, To improve performance and independence with ADL's, To decrease level of supervision to perform tasks, To improve ability of physical actions for home/community/work/leisure, To improve gait and locomotor functions, To improve health of tissue, To increase flexibility/ROM, To improve balance, To improve safety with gait Therapeutic Exercise to Include: Strength training, Endurance training, Balance training, Flexibilty training, Gait and locomotor training, Neuromotor development For the Purpose of:: To increase ROM, To improve nutrient delivery to tissue, To increase oxygenation perfusion, To improve muscle performance and motor function, To improve ability to perform ADL's, To increase tolerance to activity/condition/position, To improve performance and independence with ADL's, To decrease level of supervision to perform tasks, To improve ability of physical actions for home/community/work/leisure, To improve gait and locomotor functions, To improve health of tissue, To increase flexibility/ROM, To improve endurance, To improve balance, To improve safety with gait Functional Training to Include: Gait training For the Purpose of:: To improve gait and locomotor functions, To improve safety with gait Thank you for the opportunity to evaluate your patient. For Medicare and Medicare HMO plans, please review the plan of care and approve it. It will need to be FAXED BACK to us at [phone] for Medicare purposes. For Medicare only, by signing this I certify the plan of care. Please let me know if there are questions or concerns regarding this plan of care. Physician Signature: Date:
--- NOTE | 2022-09-18 16:11 | HP.PT.NRP ---
Patient Information Patient Information: JEREMY QUINTERO was seen in my office for initial evaluation on 06/25/22. The following Plan of Care was established for this patient: POC Established Initial Frequency: 2x /Week Initial Duration: 6 Weeks Anticipated Interventions Patient/Client Instruction: Educate patient on: Condition and Plan of Care For the Purpose of:: To decrease pain, To increase ROM, To improve nutrient delivery to tissue, To improve muscle performance and motor function, To improve ability to perform ADL's, To increase tolerance to activity/condition/position, To improve performance and independence with ADL's, To decrease level of supervision to perform tasks, To improve ability of physical actions for home/community/work/leisure, To improve gait and locomotor functions, To improve health of tissue, To increase flexibility/ROM, To improve balance and To improve safety with gait Therapeutic Exercise to Include: Strength training, Endurance training, Balance training, Flexibilty training, Gait and locomotor training and Neuromotor development For the Purpose of:: To increase ROM, To improve nutrient delivery to tissue, To increase oxygenation perfusion, To improve muscle performance and motor function, To improve ability to perform ADL's, To increase tolerance to activity/condition/position, To improve performance and independence with ADL's, To decrease level of supervision to perform tasks, To improve ability of physical actions for home/community/work/leisure, To improve gait and locomotor functions, To improve health of tissue, To increase flexibility/ROM, To improve endurance, To improve balance and To improve safety with gait Functional Training to Include: Gait training For the Purpose of:: To improve gait and locomotor functions and To improve safety with gait Last Seen Last Seen: This patient was last seen in our office . Pertinent comments regarding their Physical therapy will appear below: At this point I will be discontinuing this patient from physical therapy. I would be happy to see this patient again in the future if found appropriate by the physician. Thank you! Marly Fontaine, MALGORZATA Balance/Gait/Functional tests Balance/Special Test Scores Functional Gait Assessment Score: 18 % Disability: 40.0000 CATSIB Score (Max score 120 seconds): 105 Lower Extremity Functional Score: 70
== END 2022-07-09 19:00 | disposition home or self-care (01) ==
LOC: PT 10:00
PROVIDERS: PCP Family Medicine Geriatric Medicine; Referring Provider Family Medicine Geriatric Medicine; Visit Provider Family Medicine Geriatric Medicine
DX: R29.6 Repeated falls (principal)
CPT/HCPCS: 97110; 97161

== ENCOUNTER → 2022-08-21 | Outpatient (CLI) | payer MEDICARE, SELFPAY | END | disposition home or self-care (01) | LOC: PSN 09:11 | PROVIDERS: PCP Family Medicine Geriatric Medicine; Referring Provider Internal Medicine Cardiovascular Disease; Visit Provider Internal Medicine Cardiovascular Disease | DX: I63.512 Cerebral infarction due to unspecified occlusion or stenosis of left middle cerebral artery (principal) | CPT/HCPCS: 93225; 93226 ==

== ENCOUNTER → 2022-09-25 | Outpatient (CLI) | payer MEDICARE, SELFPAY ==
[2022-09-25 13:39] LABS: Absolute Lymphocyte Count 1.69 X10^3/uL (0.83-4.51); Absolute Neutrophil Count 5.1 X10^3/uL (2.0-7.7); Basophil# 0.01 X10^3/uL; Basophil% 0.1 % (0-1); Eosinophils% 2.7 % (0-5); Hemoglobin 14.8 g/dL (13.0-16.5); Lymphocyte # 1.69 X10^3/ul (0.83-4.51); Lymphocyte % 22.8 % (19-41); Mean Corp Hgb Conc 32.2 g/dL (32-36); Mean Corpuscular Hgb 30.6 pg (27.0-32.0); Mean Platelet Vol. 11.5 fl (6.2-12.0); Monocyte# 0.44 X10^3/uL; Monocyte% 5.9 % (0-10); NRBC Flagged by Analyzer 0 % (0-5); Neutrophil # 5.05 X10^3/uL (2.7-7.7); Neutrophil % 68.2 % (47-70); Platelet Count 175 K/mm3 (150-450); RBC Distribution Width CV 12.6 % (11.6-14.6); RBC Distribution Width SD 44.5 fl (35.1-43.9); Red Blood Count 4.84 M/mm3 (4.6-6.2); White Blood Count 7.4 K/mm3 (4.4-11.0)
[2022-09-25 14:01] LABS: Vitamin D,25 Hydroxy 40.4 ng/mL
[2022-09-25 14:06] LABS: ALB/GLOB Ratio 0.7 RATIO (0.9-2.4); AST(SGOT) 17 U/L (15-37); Alanine Aminotransfer ALT/SGPT 26 U/L (16-61); Albumin, Serum 3.3 g/dL (3.2-5.0); Alkaline Phosphatase 100 U/L (45-117); Anion Gap 8 (5-15); BUN 14 mg/dL (7-18); BUN/Creat Ratio 9.8 RATIO (10-20); Calcium,Total 8.6 mg/dL (8.5-10.1); Chloride 107 mmol/L (98-107); Cholesterol 165 mg/dL (200); Creatinine, Serum 1.43 mg/dL (0.70-1.30); EST Glomerular Filtration Rate 52 mL/min (>60); Est Glom Filt Rate - Afr Amer 63 mL/min (>60); Globulin 4.5 g/dL (2.2-4.2); Glucose 148 mg/dL (74-106); High Density Lipoprotein 38 mg/dL; Potassium 3.8 mmol/L (3.5-5.1); Protein, Total 7.8 g/dL (6.4-8.2); Sodium Level 139 mmol/L (136-145); Thyroid Stim Hormone (TSH) 1.65 uIU/mL (0.358-3.74); Triglycerides 109 mg/dL; Very Low Density Lipoprotein 22 mg/dL (5-40)
== END | disposition home or self-care (01) ==
LOC: POLAB3 10:21
PROVIDERS: PCP Family Medicine Geriatric Medicine; Visit Provider Family Medicine Geriatric Medicine
DX: E11.65 Type 2 diabetes mellitus with hyperglycemia (principal); I10 Essential (primary) hypertension; E55.9 Vitamin D deficiency, unspecified
CPT/HCPCS: 36415; 80053; 80061; 82306; 84443; 85025

== ENCOUNTER → 2022-10-21 | Outpatient (CLI) | payer MEDICARE, SELFPAY ==
--- NOTE | 2022-10-21 14:36 | CT_ITS ---
STUDY: CT BRAIN WITHOUT CONTRAST REASON FOR EXAM: Male, 72 years old. CEREBRAL INFARCTION. Left arm pain and shoulder pain. RADIATION DOSAGE (If Supplied By Facility): CTDIvol = ( 44.99 ) mGy, DLP = ( 779.24 ) mGycm TECHNIQUE: Transaxial CT imaging of the brain was performed without administration of intravenous contrast material. Individualized dose optimization techniques were used for this CT. COMPARISON: Comparison is made with prior study dated April 16, 2022. FINDINGS: Normal soft tissue structures. Normal calvarium. There is mild cerebral atrophy with widening of the extra-axial spaces and ventricular dilatation. Normal white matter tracts of the cerebral hemispheres. Old lacunar infarcts in the right basal ganglia. Stable focal decreased attenuation in the left midbrain. Normal cerebellum. There is no intracranial hemorrhage. There are no findings of an acute ischemic infarction. Mucosal thickening at the base of the right maxillary sinus. CT/Brain/Head without Contrast IMPRESSION: Chronic involutional changes of the brain. Old lacunar infarcts in the right basal ganglion. Electronically Signed: Giorgio Tomas MD at 15:09 EDT ,
--- NOTE | 2022-10-21 14:50 | RAD_ITS ---
STUDY: X-RAY - LEFT SHOULDER REASON FOR EXAM: Male, 72 years old. Pain. Evaluate for osteoarthrosis. TECHNIQUE: 4 view(s) of the shoulder. COMPARISON: None. FINDINGS: Osteopenia. Mild arthrosis of the glenohumeral joint. Mild arthrosis of the AC joint. Normal acromion. Normal humeral head and visualized proximal humerus. Normal soft tissues. Normal visualized pulmonary apex. RAD/Shoulder min 2 Views IMPRESSION: Osteopenia with mild arthrosis of the glenohumeral and acromioclavicular joints. No acute abnormality or erosive changes. Electronically Signed: Luis Allen MD at 15:10 EDT ,
== END | disposition home or self-care (01) ==
LOC: CT 14:35
PROVIDERS: PCP Family Medicine Geriatric Medicine; Referring Provider Family Medicine Geriatric Medicine; Visit Provider Family Medicine Geriatric Medicine
DX: I63.9 Cerebral infarction, unspecified (principal); M19.012 Primary osteoarthritis, left shoulder
CPT/HCPCS: 70450; 73030

== ENCOUNTER → 2022-12-25 | Outpatient (CLI) | payer MEDICARE, SELFPAY ==
[2022-12-25 11:13] LABS: Absolute Lymphocyte Count 1.75 X10^3/uL (0.83-4.51); Absolute Neutrophil Count 4.4 X10^3/uL (2.0-7.7); Basophil# 0.02 X10^3/uL; Basophil% 0.3 % (0-1); Eosinophil# 0.21 X10^3/uL; Eosinophils% 3.1 % (0-5); Hematocrit 42.7 % (40-54); Hemoglobin 13.8 g/dL (13.0-16.5); Lymphocyte # 1.75 X10^3/ul (0.83-4.51); Lymphocyte % 25.4 % (19-41); Mean Corp Hgb Conc 32.3 g/dL (32-36); Mean Corpuscular Hgb 31.2 pg (27.0-32.0); Mean Corpuscular Volume 96.4 fL (80-94); Mean Platelet Vol. 10.6 fl (6.2-12.0); Monocyte# 0.45 X10^3/uL; Monocyte% 6.5 % (0-10); NRBC Flagged by Analyzer 0 % (0-5); Neutrophil # 4.44 X10^3/uL (2.7-7.7); Neutrophil % 64.6 % (47-70); Platelet Count 191 K/mm3 (150-450); RBC Distribution Width SD 46.6 fl (35.1-43.9); Red Blood Count 4.43 M/mm3 (4.6-6.2); White Blood Count 6.9 K/mm3 (4.4-11.0)
[2022-12-25 11:23] LABS: Vitamin D,25 Hydroxy 43.2 ng/mL
[2022-12-25 11:49] LABS: ALB/GLOB Ratio 0.8 RATIO (0.9-2.4); AST(SGOT) 12 U/L (15-37); Alanine Aminotransfer ALT/SGPT 22 U/L (16-61); Albumin, Serum 3.3 g/dL (3.2-5.0); Alkaline Phosphatase 95 U/L (45-117); Anion Gap 4 (5-15); BUN 10 mg/dL (7-18); BUN/Creat Ratio 7.4 RATIO (10-20); Calcium,Total 8.5 mg/dL (8.5-10.1); Chloride 111 mmol/L (98-107); Cholesterol 84 mg/dL (200); Creatinine, Serum 1.36 mg/dL (0.70-1.30); EST Glomerular Filtration Rate 55 mL/min (>60); Est Glom Filt Rate - Afr Amer 67 mL/min (>60); Globulin 4.3 g/dL (2.2-4.2); Glucose 126 mg/dL (74-106); High Density Lipoprotein 43 mg/dL; Phosphorus 2.7 mg/dL (2.5-4.9); Potassium 3.5 mmol/L (3.5-5.1); Protein, Total 7.6 g/dL (6.4-8.2); Sodium Level 143 mmol/L (136-145); Thyroid Stim Hormone (TSH) 1.93 uIU/mL (0.358-3.74); Triglycerides 56 mg/dL; Very Low Density Lipoprotein 11 mg/dL (5-40)
[2022-12-25 12:01] LABS: Microalbumin,Random Urine 9.7 mg/L (NO RANGE EST.); Microalbumin:Creatinine Ratio 6.9 mg/g CRE (<30 mg/g CRE)
== END | disposition home or self-care (01) ==
LOC: POLAB3 10:21
PROVIDERS: PCP Family Medicine Geriatric Medicine; Visit Provider Family Medicine Geriatric Medicine
DX: E11.65 Type 2 diabetes mellitus with hyperglycemia (principal); E55.9 Vitamin D deficiency, unspecified; E78.5 Hyperlipidemia, unspecified; I10 Essential (primary) hypertension
CPT/HCPCS: 36415; 80053; 80061; 82043; 82306; 82570; 84100; 84443; 85025

== ENCOUNTER → 2023-04-10 | Outpatient (CLI) | payer MEDICARE, SELFPAY ==
[2023-04-10 11:19] LABS: Absolute Lymphocyte Count 2.03 X10^3/uL (0.83-4.51); Absolute Neutrophil Count 6.5 X10^3/uL (2.0-7.7); Basophil# 0.03 X10^3/uL; Basophil% 0.3 % (0-1); Eosinophil# 0.19 X10^3/uL; Hematocrit 46.6 % (40-54); Hemoglobin 15.2 g/dL (13.0-16.5); Lymphocyte # 2.03 X10^3/ul (0.83-4.51); Lymphocyte % 21.6 % (19-41); Mean Corp Hgb Conc 32.6 g/dL (32-36); Mean Corpuscular Hgb 30.3 pg (27.0-32.0); Monocyte# 0.63 X10^3/uL; Monocyte% 6.7 % (0-10); NRBC Flagged by Analyzer 0 % (0-5); Neutrophil # 6.49 X10^3/uL (2.7-7.7); Neutrophil % 69.1 % (47-70); Platelet Count 208 K/mm3 (150-450); RBC Distribution Width CV 12.5 % (11.6-14.6); Red Blood Count 5.01 M/mm3 (4.6-6.2); White Blood Count 9.4 K/mm3 (4.4-11.0)
[2023-04-10 11:45] LABS: Vitamin D,25 Hydroxy 27.7 ng/mL
[2023-04-10 12:05] LABS: ALB/GLOB Ratio 0.8 RATIO (0.9-2.4); AST(SGOT) 15 U/L (15-37); Alanine Aminotransfer ALT/SGPT 35 U/L (16-61); Albumin, Serum 3.5 g/dL (3.2-5.0); Alkaline Phosphatase 105 U/L (45-117); Anion Gap 3 (5-15); BUN 12 mg/dL (7-18); BUN/Creat Ratio 8.6 RATIO (10-20); Calcium,Total 8.8 mg/dL (8.5-10.1); Chloride 107 mmol/L (98-107); Cholesterol 136 mg/dL (200); EST Glomerular Filtration Rate 53 mL/min (>60); Est Glom Filt Rate - Afr Amer 64 mL/min (>60); Globulin 4.5 g/dL (2.2-4.2); Glucose 157 mg/dL (74-106); High Density Lipoprotein 41 mg/dL; Potassium 3.7 mmol/L (3.5-5.1); Sodium Level 136 mmol/L (136-145); Triglycerides 102 mg/dL; Very Low Density Lipoprotein 20 mg/dL (5-40)
== END | disposition home or self-care (01) ==
LOC: LAB 10:55
PROVIDERS: PCP Family Medicine Geriatric Medicine; Referring Provider Family Medicine Geriatric Medicine; Visit Provider Family Medicine Geriatric Medicine
DX: E11.65 Type 2 diabetes mellitus with hyperglycemia (principal); E55.9 Vitamin D deficiency, unspecified; E78.5 Hyperlipidemia, unspecified; I10 Essential (primary) hypertension
CPT/HCPCS: 36415; 80053; 80061; 82306; 84443; 85025

== ENCOUNTER → 2023-05-21 | Outpatient (CLI) | payer MEDICARE, SELFPAY ==
[2023-05-21 12:45] LABS: Absolute Neutrophil Count 5.1 X10^3/uL (2.0-7.7); Basophil# 0.02 X10^3/uL; Basophil% 0.3 % (0-1); Eosinophil# 0.19 X10^3/uL; Eosinophils% 2.6 % (0-5); Hematocrit 40.9 % (40-54); Hemoglobin 13.7 g/dL (13.0-16.5); Lymphocyte % 22.1 % (19-41); Mean Corp Hgb Conc 33.5 g/dL (32-36); Mean Corpuscular Hgb 30.6 pg (27.0-32.0); Mean Corpuscular Volume 91.5 fL (80-94); Mean Platelet Vol. 10.5 fl (6.2-12.0); Monocyte# 0.36 X10^3/uL; NRBC Flagged by Analyzer 0 % (0-5); Neutrophil # 5.06 X10^3/uL (2.7-7.7); Neutrophil % 69.7 % (47-70); Platelet Count 193 K/mm3 (150-450); RBC Distribution Width CV 12.7 % (11.6-14.6); Red Blood Count 4.47 M/mm3 (4.6-6.2); White Blood Count 7.3 K/mm3 (4.4-11.0)
[2023-05-21 14:29] LABS: Anion Gap 7 (5-15); BUN 11 mg/dL (7-18); BUN/Creat Ratio 7.1 RATIO (10-20); CPK Total, Creatine Kinase 119 U/L (39-308); Calcium,Total 8.6 mg/dL (8.5-10.1); Chloride 108 mmol/L (98-107); Creatinine, Serum 1.54 mg/dL (0.70-1.30); EST Glomerular Filtration Rate 48 mL/min (>60); Est Glom Filt Rate - Afr Amer 58 mL/min (>60); Glucose 246 mg/dL (74-106); Potassium 3.4 mmol/L (3.5-5.1); Sodium Level 140 mmol/L (136-145); Troponin-I HS 12 pg/mL (3.0-78.0)
[2023-05-23 04:07] LABS: Myoglobin, Serum 41 ng/mL (28-72)
== END | disposition home or self-care (01) ==
LOC: POLAB3 11:59
PROVIDERS: PCP Family Medicine Geriatric Medicine; Visit Provider Family Medicine Geriatric Medicine
DX: R07.9 Chest pain, unspecified (principal)
CPT/HCPCS: 36415; 80048; 82550; 83874; 84484; 85025

== ENCOUNTER → 2023-05-22 | Outpatient (CLI) | payer MEDICARE, SELFPAY ==
--- NOTE | 2023-05-22 09:43 | EKG12_ITS ---
Test Reason : ARM PAIN Blood Pressure : / mmHG Vent. Rate : 071 BPM Atrial Rate : 071 BPM P-R Int : 164 ms QRS Dur : 100 ms QT Int : 410 ms P-R-T Axes : 035 -33 -49 degrees QTc Int : 445 ms Normal sinus rhythm with sinus arrhythmia Left axis deviation Nonspecific T wave abnormality Abnormal ECG Confirmed by Ronnie Leonardo ([id number]), technical editor STUART SANCHEZ ([id number]) on 05/23/2023 1:59:48 PM Referred By: Bryant Short Confirmed By:Ronnie Leonardo
== END | disposition home or self-care (01) ==
LOC: PSN 09:41
PROVIDERS: PCP Family Medicine Geriatric Medicine; Referring Provider Family Medicine Geriatric Medicine; Visit Provider Family Medicine Geriatric Medicine
DX: R07.9 Chest pain, unspecified (principal); M79.602 Pain in left arm
CPT/HCPCS: 93005

== ENCOUNTER → 2023-06-05 | Outpatient (CLI) | payer MEDICARE, SELFPAY ==
--- NOTE | 2023-06-05 08:52 | VDLE_ITS ---
Reason For Study: Left leg swelling RIGHT LEFT CFV is compressible, spontaneous, phasic, CFV is compressible, spontaneous, phasic, competent and demonstrates normal competent, and demonstrates normal augmentation. augmentation. Procedure FV is compressible, spontaneous, phasic, This is a venous duplex using B-mode, color competent and demonstrates normal flow and spectral Doppler. augmentation. Exam performed in department. POP V is compressible, spontaneous, phasic, A preliminary report was called and/or faxed competent and demonstrates normal to Dr Short. augmentation. T/P Trunk is compressible. PTV is compressible. LT PerV is compressible. GSV is partially compressible with bright intraluminal echoes consistent with chronic SVT. VL/Venous Duplex US, Unilateral Interpretation Summary Deep veins of the left lower extremity are patent and compressible segmentally. There is no evidence of left lower extremity deep vein thrombosis. Valvular competence appears intac t within the proximal deep venous system on the left . Chronic venous changes are noted in the left g reat saphenous vein, which is partially compressible and demonstrates bright intraluminal echogenici ty. The right common femoral vein is patent and compressible . Ordering Physician: Bryant Short Chi Referring Physician: Bryant Short Chi Performed By: Lily Crump RVT and Student
--- NOTE | 2023-06-05 08:52 | ART_ITS ---
Reason For Study: PVD Procedure A bilateral lower extremity continuous wave Doppler with analog waveform analysis and ankle brachial indexes. Left Segmental Pressures Left brachial= 181mmHg. Left posterior tibial artery = >254mmHg. Left dorsalis pedis artery = 140mmHg. Left digit = 127 mmHg. The left dorsalis pedis waveforms are triphasic. The left posterior tibial artery waveforms are triphasic. Right Segmental Pressures Right brachial= 184mmHg. Right posterior tibial artery = 208mmHg. Right dorsalis pedis artery = 195mmHg. Right digit = 169 mmHg. The right dorsalis pedis waveforms are triphasic. The right posterior tibial artery waveforms are triphasic. Indices The right ankle brachial index by the dorsalis pedis is 1.06. The right ankle brachial index by the posterior tibial artery is 1.13. The right digital-brachial index is 0.92. The left ankle brachial index by the dorsalis pedis is 0.76. The left ankle brachial index by the posterior tibial artery is NC. The left digital-brachial index is 0.69. VL/Ankle Brachial Index Interpretation Summary Triphasic Doppler waveforms are noted at ankle level bilaterally. Pulse-volume recordings appear diminished at digital level on the left. The resting right ankle-brachial index is normal. The resting left ankle-brachial index is moderately diminished. The right digital-b rachial index is normal. The left digital-brachial index is mildly diminished. Arterial perfusion appears normal at ankle and digital level on the right. 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 Ordering Physician: Bryant Short Chi Referring Physician: Bryant Short Chi Performed By: Lily Crump RVT and Student
== END | disposition home or self-care (01) ==
LOC: CVS 08:51
PROVIDERS: PCP Family Medicine Geriatric Medicine; Referring Provider Family Medicine Geriatric Medicine; Visit Provider Family Medicine Geriatric Medicine
DX: M79.89 Other specified soft tissue disorders (principal); M79.672 Pain in left foot; I73.9 Peripheral vascular disease, unspecified
CPT/HCPCS: 93922; 93971

== ENCOUNTER → 2023-07-11 | Outpatient (CLI) | payer MEDICARE, SELFPAY ==
[2023-07-11 11:16] LABS: Absolute Lymphocyte Count 1.68 X10^3/uL (0.83-4.51); Absolute Neutrophil Count 6.2 X10^3/uL (2.0-7.7); Basophil# 0.04 X10^3/uL; Basophil% 0.5 % (0-1); Eosinophil# 0.14 X10^3/uL; Eosinophils% 1.6 % (0-5); Hematocrit 43.3 % (40-54); Hemoglobin 14.3 g/dL (13.0-16.5); Lymphocyte # 1.68 X10^3/ul (0.83-4.51); Lymphocyte % 19.6 % (19-41); Monocyte# 0.42 X10^3/uL; Monocyte% 4.9 % (0-10); NRBC Flagged by Analyzer 0 % (0-5); Neutrophil # 6.22 X10^3/uL (2.7-7.7); Neutrophil % 72.8 % (47-70); Platelet Count 189 K/mm3 (150-450); RBC Distribution Width CV 12.4 % (11.6-14.6); RBC Distribution Width SD 41.2 fl (35.1-43.9); Red Blood Count 4.76 M/mm3 (4.6-6.2); White Blood Count 8.6 K/mm3 (4.4-11.0)
[2023-07-11 11:45] LABS: Vitamin D,25 Hydroxy 40.1 ng/mL
[2023-07-11 11:51] LABS: Hemoglobin A1c 6.9 % (3.8-5.6)
[2023-07-11 11:56] LABS: ALB/GLOB Ratio 0.7 RATIO (0.9-2.4); AST(SGOT) 18 U/L (15-37); Alanine Aminotransfer ALT/SGPT 33 U/L (16-61); Albumin, Serum 3.2 g/dL (3.2-5.0); Alkaline Phosphatase 105 U/L (45-117); Anion Gap 4 (5-15); BUN 11 mg/dL (7-18); BUN/Creat Ratio 8.1 RATIO (10-20); Calcium,Total 8.5 mg/dL (8.5-10.1); Chloride 107 mmol/L (98-107); Cholesterol 96 mg/dL (200); Creatinine, Serum 1.36 mg/dL (0.70-1.30); EST Glomerular Filtration Rate 55 mL/min (>60); Est Glom Filt Rate - Afr Amer 66 mL/min (>60); Globulin 4.3 g/dL (2.2-4.2); Glucose 242 mg/dL (74-106); High Density Lipoprotein 39 mg/dL; Potassium 3.2 mmol/L (3.5-5.1); Protein, Total 7.5 g/dL (6.4-8.2); Sodium Level 139 mmol/L (136-145); Thyroid Stim Hormone (TSH) 2.02 uIU/mL (0.358-3.74); Triglycerides 71 mg/dL; Very Low Density Lipoprotein 14 mg/dL (5-40)
== END | disposition home or self-care (01) ==
LOC: LAB 10:35
PROVIDERS: PCP Family Medicine Geriatric Medicine; Referring Provider Family Medicine Geriatric Medicine; Visit Provider Family Medicine Geriatric Medicine
DX: E11.65 Type 2 diabetes mellitus with hyperglycemia (principal); E55.9 Vitamin D deficiency, unspecified; E78.5 Hyperlipidemia, unspecified; I10 Essential (primary) hypertension
CPT/HCPCS: 36415; 80053; 80061; 82306; 83036; 84443; 85025

== ENCOUNTER → 2023-09-26 | Outpatient (CLI) | payer MEDICARE, SELFPAY ==
[2023-09-26 11:13] LABS: Absolute Lymphocyte Count 1.46 X10^3/uL (0.83-4.51); Absolute Neutrophil Count 4.1 X10^3/uL (2.0-7.7); Basophil# 0.02 X10^3/uL; Basophil% 0.3 % (0-1); Eosinophil# 0.22 X10^3/uL; Eosinophils% 3.6 % (0-5); Hematocrit 41.2 % (40-54); Hemoglobin 13.6 g/dL (13.0-16.5); Lymphocyte # 1.46 X10^3/ul (0.83-4.51); Lymphocyte % 23.6 % (19-41); Mean Corpuscular Hgb 30.4 pg (27.0-32.0); Mean Platelet Vol. 10.7 fl (6.2-12.0); Monocyte# 0.38 X10^3/uL; Monocyte% 6.1 % (0-10); NRBC Flagged by Analyzer 0 % (0-5); Neutrophil % 66.2 % (47-70); Platelet Count 172 K/mm3 (150-450); RBC Distribution Width CV 13.2 % (11.6-14.6); RBC Distribution Width SD 44.9 fl (35.1-43.9); Red Blood Count 4.48 M/mm3 (4.6-6.2); White Blood Count 6.2 K/mm3 (4.4-11.0)
[2023-09-26 11:44] LABS: Vitamin D,25 Hydroxy 34.3 ng/mL
[2023-09-26 11:47] LABS: ALB/GLOB Ratio 0.8 RATIO (0.9-2.4); AST(SGOT) 15 U/L (15-37); Alanine Aminotransfer ALT/SGPT 19 U/L (16-61); Albumin, Serum 3.4 g/dL (3.2-5.0); Alkaline Phosphatase 88 U/L (45-117); Anion Gap 6 (5-15); BUN 9 mg/dL (7-18); BUN/Creat Ratio 6.1 RATIO (10-20); Calcium,Total 8.5 mg/dL (8.5-10.1); Chloride 108 mmol/L (98-107); Cholesterol 96 mg/dL (200); Creatinine, Serum 1.47 mg/dL (0.70-1.30); EST Glomerular Filtration Rate 50 mL/min (>60); Est Glom Filt Rate - Afr Amer 61 mL/min (>60); Globulin 4.3 g/dL (2.2-4.2); Glucose 122 mg/dL (74-106); High Density Lipoprotein 39 mg/dL; Potassium 3.8 mmol/L (3.5-5.1); Protein, Total 7.7 g/dL (6.4-8.2); Sodium Level 140 mmol/L (136-145); Thyroid Stim Hormone (TSH) 2.04 uIU/mL (0.358-3.74); Triglycerides 78 mg/dL; Very Low Density Lipoprotein 16 mg/dL (5-40)
[2023-09-26 11:56] LABS: Hemoglobin A1c 6.7 % (3.8-5.6)
== END | disposition home or self-care (01) ==
PROVIDERS: PCP Family Medicine Geriatric Medicine; Referring Provider Family Medicine Geriatric Medicine; Visit Provider Family Medicine Geriatric Medicine
DX: E11.65 Type 2 diabetes mellitus with hyperglycemia (principal); I10 Essential (primary) hypertension; E55.9 Vitamin D deficiency, unspecified; N52.9 Male erectile dysfunction, unspecified; E78.5 Hyperlipidemia, unspecified
CPT/HCPCS: 36415; 80053; 80061; 82306; 83036; 84403; 84443; 85025

== ENCOUNTER → 2024-01-01 | Outpatient (CLI) | payer MEDICARE, SELFPAY ==
[2024-01-01 11:06] LABS: Absolute Lymphocyte Count 1.63 X10^3/uL (0.83-4.51); Absolute Neutrophil Count 5.1 X10^3/uL (2.0-7.7); Basophil# 0.02 X10^3/uL; Basophil% 0.3 % (0-1); Eosinophil# 0.21 X10^3/uL; Eosinophils% 2.8 % (0-5); Hematocrit 43.4 % (40-54); Hemoglobin 14.4 g/dL (13.0-16.5); Lymphocyte # 1.63 X10^3/ul (0.83-4.51); Lymphocyte % 21.8 % (19-41); Mean Corp Hgb Conc 33.2 g/dL (32-36); Mean Corpuscular Hgb 30.4 pg (27.0-32.0); Mean Corpuscular Volume 91.8 fL (80-94); Monocyte# 0.48 X10^3/uL; Monocyte% 6.4 % (0-10); NRBC Flagged by Analyzer 0 % (0-5); Neutrophil # 5.13 X10^3/uL (2.7-7.7); Neutrophil % 68.4 % (47-70); Platelet Count 194 K/mm3 (150-450); RBC Distribution Width CV 12.5 % (11.6-14.6); RBC Distribution Width SD 42.2 fl (35.1-43.9); Red Blood Count 4.73 M/mm3 (4.6-6.2); White Blood Count 7.5 K/mm3 (4.4-11.0)
[2024-01-01 11:35] LABS: Vitamin D,25 Hydroxy 22.6 ng/mL
[2024-01-01 11:43] LABS: ALB/GLOB Ratio 0.7 RATIO (0.9-2.4); AST(SGOT) 16 U/L (15-37); Alanine Aminotransfer ALT/SGPT 23 U/L (16-61); Albumin, Serum 3.1 g/dL (3.2-5.0); Alkaline Phosphatase 101 U/L (45-117); Anion Gap 6 (5-15); BUN 13 mg/dL (7-18); BUN/Creat Ratio 8.5 RATIO (10-20); Calcium,Total 8.6 mg/dL (8.5-10.1); Chloride 110 mmol/L (98-107); Cholesterol 158 mg/dL (200); Creatinine, Serum 1.53 mg/dL (0.70-1.30); EST Glomerular Filtration Rate 48 mL/min (>60); Est Glom Filt Rate - Afr Amer 58 mL/min (>60); Globulin 4.2 g/dL (2.2-4.2); Glucose 178 mg/dL (74-106); High Density Lipoprotein 40 mg/dL; Potassium 3.7 mmol/L (3.5-5.1); Protein, Total 7.3 g/dL (6.4-8.2); Sodium Level 140 mmol/L (136-145); Triglycerides 137 mg/dL; Very Low Density Lipoprotein 27 mg/dL (5-40)
[2024-01-01 11:44] LABS: Hemoglobin A1c 6.6 % (3.8-5.6)
== END | disposition home or self-care (01) ==
LOC: POLAB3 10:51
PROVIDERS: PCP Family Medicine Geriatric Medicine; Visit Provider Family Medicine Geriatric Medicine
DX: E11.65 Type 2 diabetes mellitus with hyperglycemia (principal); I10 Essential (primary) hypertension; E55.9 Vitamin D deficiency, unspecified; E78.5 Hyperlipidemia, unspecified
CPT/HCPCS: 36415; 80053; 80061; 82306; 83036; 84443; 85025

== ENCOUNTER → 2024-04-12 | Outpatient (CLI) | payer MEDICARE, SELFPAY ==
[2024-04-12 11:20] LABS: Absolute Lymphocyte Count 1.72 X10^3/uL (0.83-4.51); Absolute Neutrophil Count 5.4 X10^3/uL (2.0-7.7); Basophil# 0.03 X10^3/uL; Basophil% 0.4 % (0-1); Eosinophil# 0.13 X10^3/uL; Eosinophils% 1.7 % (0-5); Hemoglobin 13.9 g/dL (13.0-16.5); Lymphocyte # 1.72 X10^3/ul (0.83-4.51); Mean Corp Hgb Conc 33.9 g/dL (32-36); Mean Corpuscular Hgb 30.7 pg (27.0-32.0); Mean Corpuscular Volume 90.5 fL (80-94); Mean Platelet Vol. 10.4 fl (6.2-12.0); Monocyte% 6.4 % (0-10); NRBC Flagged by Analyzer 0 % (0-5); Neutrophil # 5.41 X10^3/uL (2.7-7.7); Neutrophil % 69.1 % (47-70); Platelet Count 197 K/mm3 (150-450); RBC Distribution Width CV 13.2 % (11.6-14.6); RBC Distribution Width SD 43.9 fl (35.1-43.9); Red Blood Count 4.53 M/mm3 (4.6-6.2); White Blood Count 7.8 K/mm3 (4.4-11.0)
[2024-04-12 12:03] LABS: ALB/GLOB Ratio 0.7 RATIO (0.9-2.4); AST(SGOT) 12 U/L (15-37); Alanine Aminotransfer ALT/SGPT 28 U/L (16-61); Albumin, Serum 3.2 g/dL (3.2-5.0); Alkaline Phosphatase 100 U/L (45-117); Anion Gap 5 (5-15); BUN 11 mg/dL (7-18); BUN/Creat Ratio 7.7 RATIO (10-20); Calcium,Total 8.5 mg/dL (8.5-10.1); Chloride 110 mmol/L (98-107); Cholesterol 149 mg/dL (200); Creatinine, Serum 1.42 mg/dL (0.70-1.30); EST Glomerular Filtration Rate 52 mL/min (>60); Est Glom Filt Rate - Afr Amer 63 mL/min (>60); Globulin 4.4 g/dL (2.2-4.2); Glucose 175 mg/dL (74-106); High Density Lipoprotein 39 mg/dL; Potassium 3.6 mmol/L (3.5-5.1); Protein, Total 7.6 g/dL (6.4-8.2); Sodium Level 139 mmol/L (136-145); Triglycerides 95 mg/dL; Very Low Density Lipoprotein 19 mg/dL (5-40)
[2024-04-12 12:19] LABS: Microalbumin,Random Urine 30.1 mg/L (NO RANGE EST.)
[2024-04-12 14:12] LABS: Hemoglobin A1c 7.1 % (3.8-5.6)
== END | disposition home or self-care (01) ==
LOC: LAB 10:34
PROVIDERS: PCP Family Medicine Geriatric Medicine; Referring Provider Family Medicine Geriatric Medicine; Visit Provider Family Medicine Geriatric Medicine
DX: E11.65 Type 2 diabetes mellitus with hyperglycemia (principal); I10 Essential (primary) hypertension; E55.9 Vitamin D deficiency, unspecified; E78.5 Hyperlipidemia, unspecified
CPT/HCPCS: 36415; 80053; 80061; 82043; 82306; 82570; 83036; 84443; 85025

== ENCOUNTER → 2024-07-14 | Outpatient (CLI) | payer MEDICARE, SELFPAY ==
[2024-07-14 12:26] LABS: Absolute Lymphocyte Count 1.74 X10^3/uL (0.83-4.51); Absolute Neutrophil Count 4.6 X10^3/uL (2.0-7.7); Basophil# 0.02 X10^3/uL; Basophil% 0.3 % (0-1); Eosinophil# 0.23 X10^3/uL; Eosinophils% 3.3 % (0-5); Hematocrit 42.8 % (40-54); Hemoglobin 14.3 g/dL (13.0-16.5); Lymphocyte # 1.74 X10^3/ul (0.83-4.51); Lymphocyte % 24.9 % (19-41); Mean Corp Hgb Conc 33.4 g/dL (32-36); Mean Corpuscular Hgb 30.8 pg (27.0-32.0); Mean Corpuscular Volume 92.2 fL (80-94); Mean Platelet Vol. 11.3 fl (6.2-12.0); Monocyte# 0.42 X10^3/uL; NRBC Flagged by Analyzer 0 % (0-5); Neutrophil # 4.56 X10^3/uL (2.7-7.7); Neutrophil % 65.2 % (47-70); Platelet Count 174 K/mm3 (150-450); RBC Distribution Width CV 13.1 % (11.6-14.6); RBC Distribution Width SD 44.3 fl (35.1-43.9); Red Blood Count 4.64 M/mm3 (4.6-6.2)
[2024-07-14 12:37] LABS: Hemoglobin A1c 7.6 % (<=5.6)
[2024-07-14 12:53] LABS: ALB/GLOB Ratio 1.1 RATIO (0.9-2.4); AST(SGOT) 20 U/L (<=37); Alanine Aminotransfer ALT/SGPT 20 U/L (<=46); Albumin, Serum 3.9 g/dL (3.4-4.8); Alkaline Phosphatase 97 U/L (40-129); Anion Gap 9 (5-15); BUN 13 mg/dL (4-19); BUN/Creat Ratio 8.6 RATIO (10-20); Calcium,Total 8.8 mg/dL (7.6-11.0); Carbon Dioxide 23.9 mmol/L (21.0-32.0); Chloride 106 mmol/L (98-108); Cholesterol 148 mg/dL (<=200); Creatinine, Serum 1.48 mg/dL (0.70-1.20); EST Glomerular Filtration Rate 50 (>60); Globulin 3.5 g/dL (2.2-4.2); Glucose 192 mg/dL (70-99); High Density Lipoprotein 41 mg/dL; Low Density Lipoprotein Calc. 84 mg/dL; Protein, Total 7.4 g/dL (5.9-8.4); Sodium Level 139 mmol/L (133-145); Total Bilirubin 0.52 mg/dL (0.00-1.30); Triglycerides 118 mg/dL; Very Low Density Lipoprotein 24 mg/dL (5-40); cholesterol:hdl ratio screen 3.65
== END | disposition home or self-care (01) ==
LOC: LAB 10:14
PROVIDERS: PCP Family Medicine Geriatric Medicine; Referring Provider Family Medicine Geriatric Medicine; Visit Provider Family Medicine Geriatric Medicine
DX: E11.65 Type 2 diabetes mellitus with hyperglycemia (principal); I10 Essential (primary) hypertension; E78.5 Hyperlipidemia, unspecified; E55.9 Vitamin D deficiency, unspecified
CPT/HCPCS: 36415; 80053; 80061; 82306; 83036; 84443; 85025

== ENCOUNTER → 2024-08-18 | Outpatient (CLI) | payer MEDICARE, SELFPAY ==
[2024-08-18 15:14] LABS: Albumin, Serum 3.6 g/dL (3.4-4.8); Anion Gap 9 (5-15); BUN 12 mg/dL (4-19); BUN/Creat Ratio 8.5 RATIO (10-20); Calcium,Total 8.5 mg/dL (7.6-11.0); Carbon Dioxide 23.4 mmol/L (21.0-32.0); Chloride 108 mmol/L (98-108); Creatinine, Serum 1.39 mg/dL (0.70-1.20); EST Glomerular Filtration Rate 54 (>60); Glucose 105 mg/dL (70-99); Phosphorus 2.5 mg/dL (2.7-4.5); Potassium 4.1 mmol/L (3.3-5.1); Sodium Level 140 mmol/L (133-145)
[2024-08-18 15:33] LABS: Microalbumin,Random Urine < 12.0 mg/L (NO RANGE EST.); Microalbumin:Creatinine Ratio UNABLE TO CALCULATE mg/g CRE
== END | disposition home or self-care (01) ==
LOC: LAB 13:36
PROVIDERS: PCP Family Medicine Geriatric Medicine; Referring Provider Internal Medicine Nephrology; Visit Provider Internal Medicine Nephrology
DX: E11.22 Type 2 diabetes mellitus with diabetic chronic kidney disease (principal); N18.31 Chronic kidney disease, stage 3a
CPT/HCPCS: 36415; 80069; 82043; 82570

== ENCOUNTER → 2024-10-13 | Outpatient (CLI) | payer MEDICARE, SELFPAY ==
[2024-10-13 11:49] LABS: Hematocrit 43.5 % (40-54); Hemoglobin 14.7 g/dL (13.0-16.5); Immature Granulocytes Count 0.030 X10^3/uL (0.0-0.0); Mean Corp Hgb Conc 33.8 g/dL (32-36); Mean Corpuscular Volume 92.2 fL (80-94); Mean Platelet Vol. 10.9 fl (6.2-12.0); NRBC Flagged by Analyzer 0 % (0-5); Platelet Count 194 K/mm3 (150-450); RBC Distribution Width CV 12.3 % (11.6-14.6); RBC Distribution Width SD 42.0 fl (35.1-43.9); Red Blood Count 4.72 M/mm3 (4.6-6.2); White Blood Count 8.0 K/mm3 (4.4-11.0)
[2024-10-13 13:00] LABS: AST(SGOT) 18 U/L (<=37); Alanine Aminotransfer ALT/SGPT 16 U/L (<=46); Albumin, Serum 3.7 g/dL (3.4-4.8); Alkaline Phosphatase 105 U/L (40-129); Anion Gap 13 (5-15); BUN 9 mg/dL (4-19); BUN/Creat Ratio 7.0 RATIO (10-20); Calcium,Total 8.9 mg/dL (7.6-11.0); Carbon Dioxide 22.1 mmol/L (21.0-32.0); Chloride 105 mmol/L (98-108); Cholesterol 149 mg/dL (<=200); Globulin 3.6 g/dL (2.2-4.2); Glucose 111 mg/dL (70-99); Low Density Lipoprotein Calc. 91 mg/dL; Potassium 4.1 mmol/L (3.3-5.1); Triglycerides 87 mg/dL; Very Low Density Lipoprotein 17 mg/dL (5-40); Vitamin D,25 Hydroxy 19.4 ng/mL (30-100); cholesterol:hdl ratio screen 3.70
[2024-10-13 19:33] LABS: Xtra Tube Kwok EXTRA TUBE
== END | disposition home or self-care (01) ==
LOC: POLAB3 11:32
PROVIDERS: PCP Family Medicine Geriatric Medicine; Visit Provider Family Medicine Geriatric Medicine
DX: E11.65 Type 2 diabetes mellitus with hyperglycemia (principal); I10 Essential (primary) hypertension; E55.9 Vitamin D deficiency, unspecified; E78.5 Hyperlipidemia, unspecified
CPT/HCPCS: 36415; 80053; 80061; 82306; 83036; 84443; 85025

== ENCOUNTER 2024-10-19 08:55 | Outpatient (RCR) | payer MEDICARE, SELFPAY ==
--- NOTE | 2024-10-19 11:17 | HP.PTEVAL_ITS ---
Patient's Visit Information Visit Information Visit Information: JEREMY QUINTERO is a 74 year old M referred to Physical Therapy by Dr. Bryant Short MD with a diagnosis of LBP. Date of Evaluation: 10/19/24 Physical Therapist: Timothy Troy, PT, ATC Visit Plan Frequency: 1x/Week Duration: 1-2 weeks Plan: Issue and instruct pt on HEP of SKTC/DKTC and core stab ex's Subjective Subjective: Pt reports he has had LBP for a couple months now. Pt reports his pain had an insidious onset in nature. Pt notes his pain does feel like it is getting better overall. Pt denies any tingling or numbness this date. Pt notes he has noticed improvements over the past 2 months like it is starting to feel better. Pt has not had any diagnostic tests at this time. Pt notes that prolonged walking and standing tends to increase his pain. Pt also notes if he sits for a long period of time, he will experience increased LBP when he attempts to stand. 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 Pt reports the only thing that really helps is when he sprays his with alcohol. LBP is 5/10 while sitting here at rest, but elevates to 7/10 at worst. Pain LBP: Pain Intensity (Out of 10): 5 Pain Intensity Range: 7 Objective Objective: Neuro: B LE sensation is WNL to light touch MMT: B LE's are equal and strong throughout. ROM: Pt has minimal pain with all motions. All motions are minimally to moderately limited. Repeated movements: RFIS and [place] both increase LBP minimally. 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 For Medicare and Medicare HMO plans, please review the plan of care and approve it. It will need to be FAXED BACK to us at [phone] for Medicare purposes. For Medicare only, by signing this I certify the plan of care. Please let me know if there are questions or concerns regarding this plan of care. Physician Signature: Date:
--- NOTE | 2024-12-14 10:54 | HP.PT.NRP ---
Patient Information Patient Information: JEREMY QUINTERO was seen in my office for initial evaluation on 10/19/24. The following Plan of Care was established for this patient: POC Established Initial Frequency: 1x/Week Initial Duration: 1-2 weeks Anticipated Interventions Patient/Client Instruction: Educate patient on: Condition and Plan of Care For the Purpose of:: To improve self management Therapeutic Exercise to Include: Strength training, Endurance training, Active ROM and Dynamic Lumbar Stabilization For the Purpose of:: To decrease pain, To increase ROM and To improve muscle performance and motor function Last Seen Last Seen: This patient was last seen in our office . Pertinent comments regarding their Physical therapy will appear below: Pt has not returned for greater than 30 days and is discontinued at this time. At this point I will be discontinuing this patient from physical therapy. I would be happy to see this patient again in the future if found appropriate by the physician. Thank you! Timothy Troy, PT, ATC
== END 2024-10-19 19:00 | disposition home or self-care (01) ==
LOC: PT 08:55
PROVIDERS: PCP Family Medicine Geriatric Medicine; Referring Provider Family Medicine Geriatric Medicine; Visit Provider Family Medicine Geriatric Medicine
DX: M54.31 Sciatica, right side (principal)
CPT/HCPCS: 97161

== ENCOUNTER → 2025-01-18 | Outpatient (CLI) | payer MEDICARE, SELFPAY ==
[2025-01-18 11:17] LABS: Hematocrit 42.5 % (40-54); Hemoglobin 14.4 g/dL (13.0-16.5); Immature Granulocytes Count 0.020 X10^3/uL (0.0-0.0); Mean Corp Hgb Conc 33.9 g/dL (32-36); Mean Corpuscular Volume 92.0 fL (80-94); Mean Platelet Vol. 11.3 fl (6.2-12.0); NRBC Flagged by Analyzer 0 % (0-5); Platelet Count 166 K/mm3 (150-450); RBC Distribution Width CV 13.1 % (11.6-14.6); RBC Distribution Width SD 43.8 fl (35.1-43.9); Red Blood Count 4.62 M/mm3 (4.6-6.2); White Blood Count 7.7 K/mm3 (4.4-11.0)
[2025-01-18 12:26] LABS: AST(SGOT) 18 U/L (<=37); Alanine Aminotransfer ALT/SGPT 14 U/L (<=46); Albumin, Serum 3.9 g/dL (3.4-4.8); Alkaline Phosphatase 101 U/L (40-129); Anion Gap 10 (5-15); BUN 13 mg/dL (4-19); BUN/Creat Ratio 8.4 RATIO (10-20); Calcium,Total 8.7 mg/dL (7.6-11.0); Carbon Dioxide 23.9 mmol/L (21.0-32.0); Chloride 105 mmol/L (98-108); Cholesterol 129 mg/dL (<=200); Globulin 3.6 g/dL (2.2-4.2); Glucose 196 mg/dL (70-99); Low Density Lipoprotein Calc. 73 mg/dL; Potassium 4.0 mmol/L (3.3-5.1); Triglycerides 80 mg/dL; Very Low Density Lipoprotein 16 mg/dL (5-40); Vitamin D,25 Hydroxy 15.9 ng/mL (30-100); cholesterol:hdl ratio screen 3.23
[2025-01-18 19:01] LABS: Xtra Tube Kwok EXTRA TUBE
== END | disposition home or self-care (01) ==
LOC: POLAB3 11:00
PROVIDERS: PCP Family Medicine Geriatric Medicine; Visit Provider Family Medicine Geriatric Medicine
DX: E11.65 Type 2 diabetes mellitus with hyperglycemia (principal); I10 Essential (primary) hypertension; E78.5 Hyperlipidemia, unspecified; E55.9 Vitamin D deficiency, unspecified
CPT/HCPCS: 36415; 80053; 80061; 82306; 83036; 84443; 85025